=== PATIENT | female | born 1955 | race Caucasian/White ===

== ENCOUNTER → 2020-05-17 08:47 | Outpatient (BNVA) | payer OTHER, SELFPAY | PROVIDERS: PCP Internal Medicine; Referring Provider Internal Medicine; Visit Provider Internal Medicine Pulmonary Disease | DX: J44.9 Chronic obstructive pulmonary disease, unspecified (principal); J44.1 Chronic obstructive pulmonary disease with (acute) exacerbation; G47.33 Obstructive sleep apnea (adult) (pediatric); Z99.89 Dependence on other enabling machines and devices | CPT/HCPCS: 99212 ==

== ENCOUNTER → 2020-11-22 08:44 | Outpatient (BNVA) | payer OTHER, SELFPAY | PROVIDERS: PCP Internal Medicine; Visit Provider Internal Medicine Pulmonary Disease | DX: J44.9 Chronic obstructive pulmonary disease, unspecified (principal); G47.33 Obstructive sleep apnea (adult) (pediatric); Z99.89 Dependence on other enabling machines and devices | CPT/HCPCS: 99212 ==

== ENCOUNTER → 2021-05-29 08:39 | Outpatient (BNVA) | payer OTHER, SELFPAY | PROVIDERS: PCP Internal Medicine; Visit Provider Internal Medicine Pulmonary Disease | DX: J44.9 Chronic obstructive pulmonary disease, unspecified (principal); G47.33 Obstructive sleep apnea (adult) (pediatric); Z99.89 Dependence on other enabling machines and devices; Z99.81 Dependence on supplemental oxygen | CPT/HCPCS: 99212 ==

== ENCOUNTER → 2021-05-31 10:32 | Outpatient (BNVA) | payer OTHER, SELFPAY | PROVIDERS: PCP Internal Medicine; Visit Provider Internal Medicine Pulmonary Disease | DX: J44.9 Chronic obstructive pulmonary disease, unspecified (principal) | CPT/HCPCS: 99211 ==

== ENCOUNTER → 2021-08-01 10:36 | Outpatient (BNVA) | payer OTHER, SELFPAY | PROVIDERS: PCP Internal Medicine; Visit Provider Internal Medicine Pulmonary Disease | DX: J44.9 Chronic obstructive pulmonary disease, unspecified (principal); G47.33 Obstructive sleep apnea (adult) (pediatric); Z99.89 Dependence on other enabling machines and devices; Z99.81 Dependence on supplemental oxygen | CPT/HCPCS: 99212 ==

== ENCOUNTER → 2022-02-06 10:41 | Outpatient (BNVA) | payer OTHER, SELFPAY | PROVIDERS: PCP Internal Medicine; Visit Provider Internal Medicine Pulmonary Disease | DX: J44.9 Chronic obstructive pulmonary disease, unspecified (principal); G47.33 Obstructive sleep apnea (adult) (pediatric); Z99.89 Dependence on other enabling machines and devices; Z99.81 Dependence on supplemental oxygen | CPT/HCPCS: 99212 ==

== ENCOUNTER → 2022-08-23 10:44 | Outpatient (BNVA) | payer OTHER, SELFPAY | PROVIDERS: PCP Internal Medicine; Visit Provider Internal Medicine Pulmonary Disease | DX: J44.9 Chronic obstructive pulmonary disease, unspecified (principal); G47.33 Obstructive sleep apnea (adult) (pediatric); Z99.81 Dependence on supplemental oxygen; Z99.89 Dependence on other enabling machines and devices | CPT/HCPCS: 99212 ==

== ENCOUNTER 2023-02-27 11:20 | Outpatient (AMB) | payer OTHER, SELFPAY ==
--- NOTE | 2023-02-27 11:25 | A.OFFVIS_ITS ---
Intake Vital Signs 02/27/23 11:26 Height 5 ft 1 in Weight 220 lb 7.396 oz BMI 41.7 BP 124/69 Blood Pressure Location Rt brachial Position Sitting Pulse 76 Pulse Source Doppler Pulse Oximetry (%) 96 Oxygen Delivery Method Room Air Oxygen Flow Rate 2 Intake Visit Reasons: Dyspnea Allergies No Known Allergies Allergy (Verified 08/23/22 10:45) HPI Dyspnea HPI Details 67-year-old lady, former 20+ years smoke r, quit 2004, followed for underlying moderate to severe COPD and JF on CPAP. Patient is also followed by lung cancer screening program.? After the last office visit she has been switche d from Trelegy to BrezTri secondary to inability to tolerate powder inhalers, and now reports significantly improved symptom control. She has also been using Combivent, though intermittently. Patient continues to compliant with her CPAP with good control of her underlying JF symptoms. She denies recent exacerbations. Patient states that she had lung screening CT scan at [facility] several days prior to this evaluation, however the results are not available for this visit. [facility] Medical History (Updated 02/06/22 @ 11:29 by Olvin Rivera MD) COPD exacerbation Moderate COPD (chronic obstructive pulmonary disease) Social History (Updated 05/17/20 @ 08:59 by Sarah Ram MA) Years Smoked: 40 yrs Review of Systems Const Denies daytime sleepiness, Denies excessive sweating, Denies fatigue, Denies fever(s), Denies lethargy, Denies malaise, Denies night sweats, Denies snoring and Denies weight loss Eyes Denies blurry vision and Denies itchy eyes ENT Denies nasal congestion, Denies post nasal drip, Denies sinus pain, Denies sinus pressure and Denies other ( Thrush) Card Denies chest pain, Denies pedal edema, Denies dyspnea, Denies orthopnea and Denies paroxysmal nocturnal dyspnea Resp Denies cough, Denies hemoptysis, Denies excessive phlegm production, Denies dyspnea, Denies snoring and Denies wheezing GI Denies abdominal pain and Denies heartburn Musc Denies myalgias, Denies arthralgias and Denies joint swelling Skin/Breast Denies rash Neuro Denies memory loss and Denies seizure-like activity Psych Denies abnormal sleep pattern, Denies anxiety and Denies memory loss Endo Denies excessive sweating, Denies fatigue and Denies heat intolerance Phil/Lymph Denies easy bruising Aller/Immun Denies itchy eyes, Denies seasonal rhinorrhea and Denies wheezing Physical Exam Vital Signs: Last Vital Signs Pulse 76 02/27/23 11:26 BP 124/69 02/27/23 11:26 Pulse Ox 96 02/27/23 11:26 Oxygen Delivery Method Room Air 02/27/23 11:26 Oxygen Flow Rate 2 02/27/23 11:26 BMI result Body Mass Index 41.7 Const General: no acute distress and alert Nutritional Appearance: not obese Orientation/consciousness: Other orientation findings ( oriented) HEENT Head: Yes atraumatic Eyes General: appearance normal, both eyes and all related structures Sclerae: sclerae normal EOM: EOMs intact bilaterally Neck Neck: Yes supple Lymphatic: no lymphadenopathy noted Resp Effort & Inspection: normal respiratory effort and no use of accessory muscles Auscultation: clear to auscultation bilaterally Cardio Rate: regular rate Rhythm: regular rhythm Heart sounds: no gallops, no murmurs and no rubs Skin General skin exam: other ( warm) Extrem General: No clubbing, No cyanosis and No edema Assessment & Plan Assessment & Plan (1) Asthma-COPD overlap syndrome: Code(s): J44.9 - Chronic obstructive pulmonary disease, unspecified Plan: Well controlled on current regimen of BrezTri and Combivent. Continue current regimen. Will obtain full PFT. Will refer to Pulmonary Rehab. (2) Supplemental oxygen dependent: Code(s): Z99.81 - Dependence on supplemental oxygen Plan: Continue supplemental oxygen to maintain O2 saturation of 88-92%. (3) JF on CPAP: Code(s): G47.33 - Obstructive sleep apnea (adult) (pediatric); Z99.89 - Dependence on other enabling machines and devices Plan: Well controlled on current CPAP therapy. Continue CPAP therapy. Orders: Orders PFT pulmonary function test Today J44.9 - Chronic obstructive pulmonary disease , unspecified Pulmonary Rehab Today J44.9 - Chronic obstructive pulmonary disease, unspecified Medications: Refilled Breztri Aerosphere 160-9-4.8 mcg/actuation (nhfamyuskp-[id number]-tgdpfqyvqv) 2 inhalations inhalation BID 3 ea 3RF 90 days NS J44.9 - Chronic obstructive pulm onary disease, unspecified Coding Level of Care Code Est Pt Level 4 (00200) Diagnoses Asthma-COPD overlap syndrome J44.9 Supplemental oxygen dependent Z99.81 JF on CPAP G47.33; Z99.89
[2023-02-27 11:26] VITALS: BP 124/69; PULSE 76; O2SAT 96; BMI 41.7
== END 2023-02-27 11:48 | disposition home or self-care (01) ==
PROVIDERS: PCP Internal Medicine; Visit Provider Internal Medicine Pulmonary Disease
DX: J44.9 Chronic obstructive pulmonary disease, unspecified (principal); Z99.81 Dependence on supplemental oxygen; G47.33 Obstructive sleep apnea (adult) (pediatric); Z99.89 Dependence on other enabling machines and devices
CPT/HCPCS: 99214

== ENCOUNTER → 2023-02-27 11:20 | Outpatient (BNVA) | payer OTHER, SELFPAY | PROVIDERS: PCP Internal Medicine; Visit Provider Internal Medicine Pulmonary Disease | DX: J44.9 Chronic obstructive pulmonary disease, unspecified (principal); G47.33 Obstructive sleep apnea (adult) (pediatric); Z79.899 Other long term (current) drug therapy; Z99.81 Dependence on supplemental oxygen; Z99.89 Dependence on other enabling machines and devices | CPT/HCPCS: 99212 ==

== ENCOUNTER 2023-04-01 10:08 | Outpatient (REF) | payer OTHER, SELFPAY ==
--- NOTE | 2023-04-01 11:24 | PFT_ITS ---
FVC 112%, FEV1 89%, FEV1/FVC ratio is 62, which is decreased. [id number] 47%. MVV 92%. Post bronchodilator therapy, there is actually some decrease in most of the volumes. Lung volumes; total lung capacity 151%, residual volume 226%. Diffusion capacity is 44%. CONCLUSION: These findings are consistent with severe obstructive airway disorder. There is a negative response to bronchodilator therapy. Lung volumes indicate hyperinflation and air trapping. Clinical correlation is recommended. MD DAVID Golden/MODL / [id number]
== END 2023-04-01 10:09 | disposition home or self-care (01) ==
LOC: HO.RESP 10:08
PROVIDERS: PCP Internal Medicine; Visit Provider Internal Medicine Pulmonary Disease
DX: J44.9 Chronic obstructive pulmonary disease, unspecified (principal)
CPT/HCPCS: 94010; 94727; 94729

== ENCOUNTER → 2023-04-01 11:24 | Outpatient (BNV) | payer OTHER, SELFPAY | PROVIDERS: PCP Internal Medicine; Visit Provider Internal Medicine | DX: J44.9 Chronic obstructive pulmonary disease, unspecified (principal) | CPT/HCPCS: 94060; 94727; 94729 ==

== ENCOUNTER 2023-06-19 10:00 | Outpatient (RCR) | payer OTHER, SELFPAY | END 2023-07-02 09:29 | disposition home or self-care (01) | LOC: HO.PR 10:00 | PROVIDERS: PCP Internal Medicine; Visit Provider Internal Medicine Pulmonary Disease | DX: J44.9 Chronic obstructive pulmonary disease, unspecified (principal) | CPT/HCPCS: 94625; 94761; 99215 ==

== ENCOUNTER 2023-09-26 11:01 | Outpatient (AMB) | payer OTHER, SELFPAY ==
[2023-09-26 11:14] VITALS: BP 104/60; PULSE 68; O2SAT 91; BMI 40.6
--- NOTE | 2023-09-26 11:14 | MHC.OFFVIS ---
Intake Vital Signs 09/26/23 11:14 Height 5 ft 1 in Weight 214 lb 15.211 oz BMI 40.6 BP 104/60 Blood Pressure Location Rt brachial Position Sitting Pulse 68 Pulse Source Doppler Pulse Oximetry (%) 91 L Oxygen Delivery Method Room Air Intake Visit Reasons: Dyspnea Allergies No Known Allergies Allergy (Verified 08/23/22 10:45) HPI Dyspnea HPI Details 67-year-old lady, former 20+ years smoker, quit 2004, followed for underlying moderate to severe COPD and JF on CPAP. Patient is also followed by lung cancer screening program.? She continues on BrezTri secondary to inability to tolerate powder inhalers, and now reports significantly improved symptom control. She has also been using Combivent. Patient continues to be compliant with her CPAP with good control of her underlying JF symptoms. She denies recent exacerbations. [facility] Medical History (Updated 02/06/22 @ 11:29 by Olvin Rivera MD) COPD exacerbation Moderate COPD (chronic obstructive pulmonary disease) Social History (Updated 05/17/20 @ 08:59 by Sarah Ram MA) Years Smoked: 40 yrs Review of Systems Const Denies daytime sleepiness, Denies excessive sweating, Denies fatigue, Denies fever(s), Denies lethargy, Denies malaise, Denies night sweats, Denies snoring and Denies weight loss Eyes Denies blurry vision and Denies itchy eyes ENT Denies nasal congestion, Denies post nasal drip, Denies sinus pain, Denies sinus pressure and Denies other ( Thrush) Card Denies chest pain, Denies pedal edema, Denies dyspnea, Denies orthopnea and Denies paroxysmal nocturnal dyspnea Resp Denies cough, Denies hemoptysis, Denies excessive phlegm production, Denies dyspnea, Denies snoring and Denies wheezing GI Denies abdominal pain and Denies heartburn Musc Denies myalgias, Denies arthralgias and Denies joint swelling Skin/Breast Denies rash Neuro Denies memory loss and Denies seizure-like activity Psych Denies abnormal sleep pattern, Denies anxiety and Denies memory loss Endo Denies excessive sweating, Denies fatigue and Denies heat intolerance Phil/Lymph Denies easy bruising Aller/Immun Denies itchy eyes, Denies seasonal rhinorrhea and Denies wheezing Physical Exam Vital Signs: Last Vital Signs Pulse 68 09/26/23 11:14 BP 104/60 09/26/23 11:14 Pulse Ox 91 L 09/26/23 11:14 Oxygen Delivery Method Room Air 09/26/23 11:14 BMI result Body Mass Index 40.6 Const General: no acute distress and alert Nutritional Appearance: obese Orientation/consciousness: Other orientation findings ( oriented) HEENT Head: Yes atraumatic Eyes General: appearance normal, both eyes and all related structures Sclerae: sclerae normal EOM: EOMs intact bilaterally Neck Neck: Yes supple Lymphatic: no lymphadenopathy noted Resp Effort & Inspection: normal respiratory effort and no use of accessory muscles Auscultation: clear to auscultation bilaterally Cardio Rate: regular rate Rhythm: regular rhythm Heart sounds: no gallops, no murmurs and no rubs Skin General skin exam: other ( warm) Extrem General: No clubbing, No cyanosis and No edema Assessment & Plan Assessment & Plan (1) Asthma-COPD overlap syndrome: Code(s): J44.9 - Chronic obstructive pulmonary disease, unspecified Plan: Well controlled on current regimen of Breztri and Combivent. Continue current regimen. (2) Supplemental oxygen dependent: Code(s): Z99.81 - Dependence on supplemental oxygen Plan: Continue supplemental oxygen to maintain O2 saturation of 88-90%. (3) JF on CPAP: Code(s): G47.33 - Obstructive sleep apnea (adult) (pediatric); Z99.89 - Dependence on other enabling machines and devices Plan: Well controlled on current CPAP therapy. Continue CPAP therapy. Medications: Refilled Combivent Respimat 20-100 mcg/actuation (ipratropium-albuterol) 1 puff PO QID 3 ea 4RF 90 days NS Coding Level of Care Code Est Pt Level 4 (28168) Diagnoses Asthma-COPD overlap syndrome J44.9 Supplemental oxygen dependent Z99.81 JF on CPAP G47.33; Z99.89
== END 2023-09-26 11:28 | disposition home or self-care (01) ==
PROVIDERS: PCP Internal Medicine; Visit Provider Internal Medicine Pulmonary Disease
DX: J44.9 Chronic obstructive pulmonary disease, unspecified (principal); Z99.81 Dependence on supplemental oxygen; G47.33 Obstructive sleep apnea (adult) (pediatric); Z99.89 Dependence on other enabling machines and devices
CPT/HCPCS: 99214

== ENCOUNTER → 2023-09-26 11:01 | Outpatient (BNVA) | payer OTHER, SELFPAY | PROVIDERS: PCP Internal Medicine; Visit Provider Internal Medicine Pulmonary Disease | DX: J44.9 Chronic obstructive pulmonary disease, unspecified (principal); G47.33 Obstructive sleep apnea (adult) (pediatric); Z99.81 Dependence on supplemental oxygen; Z99.89 Dependence on other enabling machines and devices | CPT/HCPCS: 99212 ==

== ENCOUNTER 2024-03-31 10:08 | Outpatient (AMB) | payer OTHER, SELFPAY ==
[2024-03-31 10:13] VITALS: BP 119/66; PULSE 82; O2SAT 93; BMI 40.2
--- NOTE | 2024-03-31 10:13 | MHC.OFFVIS ---
Vital Signs 03/31/24 10:13 Height 5 ft 1 in Weight 213 lb BMI 40.2 BP 119/66 Blood Pressure Location Rt brachial Position Sitting Pulse 82 Pulse Source Doppler Pulse Oximetry (%) 93 Oxygen Delivery Method Nasal Cannula Oxygen Flow Rate 2 Intake Visit Reasons: Dyspnea Allergies No Known Allergies Allergy (Verified 08/23/22 10:45) HPI HPI Dyspnea: Details: 67-year-old lady, former 20+ years smoker, quit 2004, followed for underlying moderate to severe COPD and JF on CPAP. Patient has completed lung cancer screening program.? She continues on BrezTri secondary to inability to tolerate powder inhalers, and now reports significantly improved symptom control. She has also been using Combivent. Patient continues to be compliant with her CPAP with good control of her underlying JF symptoms. She does complain of mild bronchitic exacerbation symptomatic with cough productive of whitish sputum, but no wheezing. [facility] Medical History (Updated 02/06/22 @ 11:29 by Olvin Rivera MD) COPD exacerbation Moderate COPD (chronic obstructive pulmonary disease) Social History (Updated 05/17/20 @ 08:59 by Sarah Ram MA) Years Smoked: 40 yrs Review of Systems Const Denies daytime sleepiness, Denies excessive sweating, Denies fatigue, Denies fever(s), Denies lethargy, Denies malaise, Denies night sweats, Denies snoring and Denies weight loss Eyes Denies blurry vision and Denies itchy eyes ENT Denies nasal congestion, Denies post nasal drip, Denies sinus pain, Denies sinus pressure and Denies other ( Thrush) Card Denies chest pain, Denies pedal edema, Denies dyspnea, Denies orthopnea and Denies paroxysmal nocturnal dyspnea Resp Reports cough, Denies hemoptysis, Reports excessive phlegm production, Denies dyspnea, Denies snoring and Denies wheezing GI Denies abdominal pain and Denies heartburn Musc Denies myalgias, Denies arthralgias and Denies joint swelling Skin/Breast Denies rash Neuro Denies memory loss and Denies seizure-like activity Psych Denies abnormal sleep pattern, Denies anxiety and Denies memory loss Endo Denies excessive sweating, Denies fatigue and Denies heat intolerance Phil/Lymph Denies easy bruising Aller/Immun Denies itchy eyes, Denies seasonal rhinorrhea and Denies wheezing Physical Exam Vital Signs: Last Vital Signs Pulse 82 03/31/24 10:13 BP 119/66 03/31/24 10:13 Pulse Ox 93 03/31/24 10:13 Oxygen Delivery Method Nasal Cannula 03/31/24 10:13 Oxygen Flow Rate 2 03/31/24 10:13 BMI result Body Mass Index 40.2 Const General: no acute distress and alert Nutritional Appearance: obese Orientation/consciousness: Other orientation findings ( oriented) HEENT Head: Yes atraumatic Eyes General: appearance normal, both eyes and all related structures Sclerae: sclerae normal EOM: EOMs intact bilaterally Neck Neck: Yes supple Lymphatic: no lymphadenopathy noted Resp Effort & Inspection: normal respiratory effort and no use of accessory muscles Auscultation: clear to auscultation bilaterally Cardio Rate: regular rate Rhythm: regular rhythm Heart sounds: no gallops, no murmurs and no rubs Skin General skin exam: other ( warm) Extrem General: No clubbing, No cyanosis and No edema Assessment & Plan Assessment & Plan (1) Asthma-COPD overlap syndrome: Code(s): J44.9 - Chronic obstructive pulmonary disease, unspecified Category: Medical Plan: Well controlled on current regimen of BrezTri and Combiven. Continue current regimen. Will treat bronchitic exacerbation with a course of azithromycin. (2) Supplemental oxygen dependent: Code(s): Z99.81 - Dependence on supplemental oxygen Category: Medical Plan: Continue supplemental oxygen to maintain O2 saturation of 88-92%. (3) FJ on CPAP: Code(s): G47.33 - Obstructive sleep apnea (adult) (pediatric); Z99.89 - Dependence on other enabling machines and devices Category: Medical Plan: Well controlled on CPAP therapy. Continue CPAP therapy. Medications: New azithromycin For 250 mg dose pack: take 500 mg today (day 1), then 250 mg for 4 days (days 2-5) PO 6 tabs 0RF Coding Level of Care Code Est Pt Level 4 (56059) Complex EM visit Add On G2211 Diagnoses Asthma-COPD overlap syndrome J44.9 Supplemental oxygen dependent Z99.81 JF on CPAP G47.33; Z99.89
== END 2024-03-31 10:34 | disposition home or self-care (01) ==
PROVIDERS: PCP Internal Medicine; Visit Provider Internal Medicine Pulmonary Disease
DX: J44.9 Chronic obstructive pulmonary disease, unspecified (principal); Z99.81 Dependence on supplemental oxygen; G47.33 Obstructive sleep apnea (adult) (pediatric); Z99.89 Dependence on other enabling machines and devices
CPT/HCPCS: 99214

== ENCOUNTER → 2024-03-31 10:08 | Outpatient (BNVA) | payer OTHER, SELFPAY | PROVIDERS: PCP Internal Medicine; Visit Provider Internal Medicine Pulmonary Disease | DX: J44.9 Chronic obstructive pulmonary disease, unspecified (principal); G47.33 Obstructive sleep apnea (adult) (pediatric); Z99.81 Dependence on supplemental oxygen; Z99.89 Dependence on other enabling machines and devices | CPT/HCPCS: 99212 ==

== ENCOUNTER 2024-09-14 10:11 | Outpatient (AMB) | payer OTHER, SELFPAY ==
[2024-09-14 10:27] VITALS: BP 100/60; PULSE 81; O2SAT 93; BMI 41.0
--- NOTE | 2024-09-14 10:27 | MHC.OFFVIS ---
Vital Signs 09/14/24 10:27 Height 5 ft 1 in Weight 217 lb BMI 41.0 BP 100/60 Blood Pressure Location Lt brachial Position Sitting Pulse 81 Pulse Source Doppler Pulse Oximetry (%) 93 Oxygen Delivery Method Nasal Cannula Oxygen Flow Rate 1 Intake Visit Reasons: dyspnea Allergies No Known Allergies Allergy (Verified 08/23/22 10:45) HPI HPI dyspnea: Details: 68-year-old lady, former 20+ years smoker, quit 2004, followed for underlying moderate to severe COPD and JF on CPAP. Patient has completed lung cancer screening program.? She continues on BrezTri secondary to inability to tolerate powder inhalers, and her symptoms are well controlled. She has also been using Combivent. Patient continues to be compliant with her CPAP with good control of her underlying JF symptoms. She denies recent exacerbations. [facility] Medical History (Updated 02/06/22 @ 11:29 by Olvin Rivera MD) COPD exacerbation Moderate COPD (chronic obstructive pulmonary disease) Social History (Updated 05/17/20 @ 08:59 by Sarah Ram MA) Years Smoked: 40 yrs Review of Systems Const Denies daytime sleepiness, Denies excessive sweating, Denies fatigue, Denies fever(s), Denies lethargy, Denies malaise, Denies night sweats, Denies snoring and Denies weight loss Eyes Denies blurry vision and Denies itchy eyes ENT Denies nasal congestion, Denies post nasal drip, Denies sinus pain, Denies sinus pressure and Denies other ( Thrush) Card Denies chest pain, Denies pedal edema, Denies dyspnea, Denies orthopnea and Denies paroxysmal nocturnal dyspnea Resp Denies cough, Denies hemoptysis, Denies excessive phlegm production, Denies dyspnea, Denies snoring and Denies wheezing GI Denies abdominal pain and Denies heartburn Musc Denies myalgias, Denies arthralgias and Denies joint swelling Skin/Breast Denies rash Neuro Denies memory loss and Denies seizure-like activity Psych Denies abnormal sleep pattern, Denies anxiety and Denies memory loss Endo Denies excessive sweating, Denies fatigue and Denies heat intolerance Phil/Lymph Denies easy bruising Aller/Immun Denies itchy eyes, Denies seasonal rhinorrhea and Denies wheezing Physical Exam Vital Signs: Last Vital Signs Pulse 81 09/14/24 10:27 BP 100/60 09/14/24 10:27 Pulse Ox 93 09/14/24 10:27 Oxygen Delivery Method Nasal Cannula 09/14/24 10:27 Oxygen Flow Rate 1 09/14/24 10:27 BMI result Body Mass Index 41.0 Const General: no acute distress and alert Nutritional Appearance: obese Orientation/consciousness: Other orientation findings ( oriented) HEENT Head: Yes atraumatic Eyes General: appearance normal, both eyes and all related structures Sclerae: sclerae normal EOM: EOMs intact bilaterally Neck Neck: Yes supple Lymphatic: no lymphadenopathy noted Resp Effort & Inspection: normal respiratory effort and no use of accessory muscles Auscultation: clear to auscultation bilaterally Cardio Rate: regular rate Rhythm: regular rhythm Heart sounds: no gallops, no murmurs and no rubs Skin General skin exam: other ( warm) Extrem General: No clubbing, No cyanosis and No edema Assessment & Plan Assessment & Plan (1) Asthma-COPD overlap syndrome: Code(s): J44.9 - Chronic obstructive pulmonary disease, unspecified Category: Medical Plan: Well controlled on current regimen of Breztri and Combivent. Continue current regimen. (2) Supplemental oxygen dependent: Code(s): Z99.81 - Dependence on supplemental oxygen Category: Medical Plan: Continue supplemental oxygen to maintain O2 saturation of 89-93%. (3) JF on CPAP: Code(s): G47.33 - Obstructive sleep apnea (adult) (pediatric); Z99.89 - Dependence on other enabling machines and devices Category: Medical Plan: Therapy and compliance report reviewed - patient is benefitting from and is compliant with noninvasive positive pressure ventilation treatment, using it greater than 70% of the time, more than 4 hours per night. Continue current CPAP therapy. Coding Level of Care Code Est Pt Level 4 (12134) Complex EM visit Add On G2211 Diagnoses Asthma-COPD overlap syndrome J44.9 Supplemental oxygen dependent Z99.81 JF on CPAP G47.33; Z99.89
--- OUTSIDE RECORDS SUMMARY | 2024-09-14 11:54 | XMS_ITS | Clinical Summary ---
Author Organization [address] Address [address] [place] [phone] Phone Care Team Providers Care Blood And Plasma Laboratory Assistant Name Role Phone Lisa Fitzpatrick MD Primary Care Provider [phone] Allergies No known active allergies Medications ascorbate calcium/bioflavon oid (REINA-C WITH BIOFLAVONOIDS ORAL) Take 1,000 mg by mouth daily. Active budesonide-glycop yr-formoterol (Breztri Aerosphere) 160-9-4.8 mcg/actuation HFA aerosol inhaler inhaler Inhale 2 Puffs into the lungs 2 times daily. Pulmo Active calcium carbonate/vitamin D3 (CALCIUM + D ORAL) Take 1 Tab by mouth daily. Active ascorbic acid/collagen hydr (COLLAGEN SKIN RENEWAL ORAL) COLLAGEN OR Take 1 Each by mouth daily. Active ipratropium-albut Karin (Combivent Respimat) 20-100 mcg/actuation inhaler INHALE 1 PUFF BY MOUTH FOUR TIMES A DAY 9 Active UNABLE TO FIND CPAP HISTORICAL (HISTORICAL CPAP) 12 cm by Nasal route at bedtime. Regional-press ure 6-16 Active desoximetasone (TOPICORT) 0.25 % cream 2 Active latanoprost (XALATAN) 0.005 % ophthalmic solution 9 Active Oxygen Therapy (O2) gas Inhale into the lungs. Active eye vitamin supplement (OCUVITE EYE HEALTH FORMULA) capsule capsule Take 1 tablet by mouth daily. Active pantoprazole (PROTONIX) 40 mg EC tablet Take 1 tablet (40 mg total) by mouth 1 (one) time each day. Do not crush, chew, or split. 90 each 1 4 Active Synthroid 175 mcg tabletIndications :Hypothyroidism following radioiodine therapy Take 1 tablet (175 mcg total) by mouth 1 (one) time each day before breakfast. 90 tablet 1 4 Active buPROPion SR (WELLBUTRIN SR) 150 mg 12 hr tablet Take 1 tablet (150 mg total) by mouth 2 (two) times a day. Do not crush, chew, or split. 180 tablet 1 5 Active predniSONE (DELTASONE) 20 mg tablet Take 60 mg PO daily for 3 days, then take 40 mg PO daily for 3 days, then 20 mg PO daily for 3 days, then stop 18 tablet 5 Active Active Problems Problem Noted Date Diagnosed Date GERD (gastroesophageal reflux disease) 4 Overview (04/27/2024): Upper GI endoscopy 03/03/2009, 7-cm hiatal hernia. No other lesions. Assessment & Plan (05/31/2024 12:20 PM EST): Anxiety 11/03/2023 CKD (chronic kidney disease) stage 3, GFR 30-59 ml/min 04/29/2022 Assessment & Plan (05/31/2024 12:20 PM EST): Class 2 obesity 01/23/2018 Pulmonary nodules 01/01/2018 Actinic keratoses 04/30/2017 Overview (04/27/2024): Actinic keratoses 05/02 face JF and COPD overlap syndrome 04/03/2017 Stage 2 moderate COPD by GOLD classification Assessment & Plan (05/31/2024 12:20 PM EST): PLMD (periodic limb movement disorder) 0 Fatty liver 09/18/2009 Overview (04/27/2024): Incidental finding on chest CT scan 09/11/2009. Graves' disease 02/22/2009 Overview (05/28/2024): History of radioactive iodine treatment for this. Hiatal hernia 02/22/2009 Overview (04/27/2024): Upper GI endoscopy 03/03/2009, 7-cm hiatal hernia. Osteoarthrosis, localized, primary, involving lo wer leg 06/03/2006 Overview (04/27/2024): Left: mild xray and mri findings IMO Update Fall 2015 Depressive disorder 11/12/2005 Hypothyroidism following radioiodine therapy Overview (04/27/2024): RA iodine for graves Assessment & Plan (05/31/2024 12:20 PM EST): Orders: Synthroid 175 mcg tablet; Take 1 tablet (175 mcg total) by mouth 1 (one) time each day before breakfast. Urinary incontinence 11/12/2005 Assessment & Plan (05/31/2024 12:20 PM EST): Encounters Date Type Department Care Team Description 09/03/2024 10:31 AM EDT - 09/03/2024 11:59 PM EDT Hospital Encounter Radiology Department - [address] [phone] Encounter for screening mammogram for breast cancer Discharge Disposition: Home or Self Care 07/30/2024 12:30 PM EST Consult Orthopedics - [address] [phone] Rafiq Brunson PA Mucous cyst of digit of right hand (Primary Dx); Nodule of finger of right hand 07/30/2024 11:30 AM EST - 07/30/2024 11:59 PM EST Hospital Encounter XRAY - [address] [phone] Nodule of finger of right hand Discharge Disposition: Home or Self Care 07/28/2024 10:30 AM EST Office Visit Adult [facility] - [address] [phone] Shalonda Gupta PA COPD exacerbation (CMS/HCC) (Primary Dx) 07/27/2024 Telephone Adult Medicine [address] [phone] Lisa Fitzpatrick MD Cough from Last 3 Months Immunizations Name Administration Dates Next Due Influenza Quadravalent, 0.5m l (Fluad) 65yo and older 02/19/2023,03/15/2022,03/26/2021,02/22 Influenza Quadravalent, MDCK , 0.5ml, preservative free (Flucelvax) 6mo and older 04/17/2018 Influenza Quadravalent, MDCK , 0.5ml, with preservative (Flucelvax) 6mo and older 03/03/2017 Influenza Quadrivalent, 0.5m l, preservative free (Fluarix; FluLaval; Fluzone) ages 6mo and older (Afluria) 3yo and older 03/27/2019 Influenza trivalent, 0.5mL ( Fluad) 65yo and older 02/26/2024,03/16/2022,03/26/2021,02/22 Influenza trivalent, 0.5mL, preservative free (Fluarix; FluLaval; Fluzone) ages 6mo and older (Afluria) 3 years and older 03/27/2019,02/27/2016,03/13/2015,03/30,03/04/2013,04/22/2012,04/16/2010 Influenza trivalent, with pr eservative (Fluzone; Afluria) 6mo and older 02/27/2016,03/13/2015,03/30/2014,03/04,04/22/2012,02/21/2011,04/16/2010 Influenza, Unspecified 04/04/2023 Moderna SARS-CoV-2 COVID-19, mRNA, LNP-S, preservative free 10/03/2021 Pfizer (ages 12 & older) Biv alent, COVID-19 03/17/2022 Pfizer SARS-CoV-2 COVID-19, mRNA, LNP-S, preservative free 10/07/2020,09/16/2020 Pneumococcal conjugate 13 va lent (Prevnar 13, PCV13) 2mo and older 01/24/2020 Pneumococcal polysaccharide 23 valent (Pneumovax 23) 2yo and older 04/17/2018,04/16/2010 RSV, bivalent, protein subun it RSVpreF, 0.5mL, Preservative Free (ABRYSVO) 60yo and older or 32 through 36 wks of 03/07/2023 RSV, bivalent, protein subun it RSVpreF, 0.5mL, Preservative Free (Arexvy) 60yo and older 04/04/2023 Tdap Tetanus diptheria acell ular pertussis (Boostrix; Adacel) 7yo and older 07/26/2019,06/24/2007 Zoster Live 12/25/2015 Zoster recombinant (Shingrix ) 19yo and older 07/27/2021,03/30/2021 Surgical History Surgery Date Site/Laterality Comments HYSTERECTOMY 1983 OTHER SURGICAL HISTORY Graves disease X 3 TONSILLECTOMY 1957 OTHER SURGICAL HISTORY 03/09 L BREAST CYST ESOPHAGOGASTRODUODENOSCOPY 03/03/2009 : 7 cm hiatal hernia. CHOLECYSTECTOMY 03/14/2009 EYE SURGERY 10/28 , Garth portillo for pressurein eyes BREAST BIOPSY Right cyst asp-many yrs ago CYSTOCELE REPAIR Medical History Medical History Date Comments Irritable bowel syndrome Osteoarthrosis, unspecified whether generalized or localized, lower leg 06/03/2006 DX:Osteoarthrosis, unspecified whether generalized or localized, lower leg; COMMENT: Left: mild xray and mri findings GERD (gastroesophageal reflux disease) Fatty liver 09/18/2009 DX:Fatty liver Actinic keratoses 04/30/2017 CKD (chronic kidney disease) stage 3, GFR 30-59 ml/min ([facility]) 04/29/2022 Anxiety 11/03/2023 Depressive disorder 11/12/2005 Graves' disease 02/22/2009 History of radio active iodine treatment for this. ?? Hypothyroidism following rad ioiodine therapy 11/12/2005 RA iodine for graves JF and COPD overlap syndrome ([facility]) 04/03/20 17 PLMD (periodic limb movement disorder) 0 Stage 2 moderate COPD by GOL D classification ([facility]) 04/03/2017 Urinary incontinence 11/12/2005 Family History Medical History Relation Name Comments Heart attack Brother lung cancer Seizures Father Other: lupus Mother lung cancer Other: lupus Sister 1 Lung cancer Sister 2 Asthma Son xander Breast cancer Neg Hx Colon cancer Neg Hx Ovarian cancer Neg Hx Uterine cancer Neg Hx Relation Name Status Comments Brother Alive Father (Age 50) Maternal Grandfather Maternal Grandmother Mother Paternal Grandfather Paternal Grandmother CHILDBI RTH Sister 1 Alive Sister 2 Alive Son Social History Tobacco Use Types Packs/Day Years Used Date Smoking Tobacco: Former Cigarettes 1 39.1 0 06/16/1968 - 07/31/2007 Smokeless Tobacco: Never Tobacco Cessation:Counseling Given: Not Answered Alcohol Use Standard Drinks/Week Comments No 0 (1 standard drink = 0.6 oz pur e alcohol) Comments No Sex and Gender Information Value Date Recorded Sex Assigned at Not on file Legal Sex Female 6:57 PM EST Gender Identity Not on file Sexual Orientation Not on file Obstetrics History Para Term AB IAB SAB Ectopic Multiple Livin g Live Births 3 3 3 3 Date Outcome GA Total Labor Labor/2nd/3rd Weight Sex Type Anes PTL Chantal A1 A5 Name Clin Term Term Term Last Filed Vital Signs Vital Sign Reading Time Taken Comments Blood Pressure 118/62 07/28/2024 10:46 AM EST Pulse 75 07/28/2024 10:46 AM EST Temperature 36 ??C (96.8 ??F) 07/28/2024 10:46 AM EST Respiratory Rate 16 07/30/2024 12:28 PM EST Oxygen Saturation 95% 07/28/2024 10:46 AM EST 2L o2 Inhaled Oxygen Concentration - - Weight 99.3 kg (219 lb) 07/30/2024 12:28 PM EST Height 156.2 cm (5' 1.5 ) 07/30/2024 12:28 PM ES T Body Mass Index 40.71 07/30/2024 12:28 PM EST Plan of Treatment Upcoming Encounters Date Type Department Care Team (Late st Contact Info) Description 09/14/2024 2:00 PM EDT Consult Orthopedic Surgery - [place] [address] [facility] [address] [place] [phone] Kena Busby MD [address] [facility] [address] [place] [phone] 01/13/2025 11:30 AM EDT Office Visit Adult Medicine [facility] [address] [place] [phone] Ana Cristina Shah PA [address] [place] [address] Health Maintenance Due Date Last Done Comments Colorectal Cancer Screening: Stool Based Tests (FOBT/FIT) 05/25/2022 Social Influencers of Health Screening 05/25/2022 Depression Screening 05/31/2025 05/31/2024 Falls Risk Assessment 05/31/2025 05/31/2024 Breast Cancer Screening 09/03/2026 09/04/19, 08/26/2023, 08/19/2022, Additional history exists Cholesterol Screening (Lipid Panel) 10/20/2028 10/21/2023, 10/21/2023 DTaP,Tdap,and Td Vaccines (3 - Td or Tdap) 07/26/2029 07/26/2019, 06/24/2007 Osteoporosis Screening (Bone Density Screening) 02/10/2030 02/11/2020 Hepatitis C Screening Completed 06/05/2015 Zoster Vaccines Completed 07/27/2021, 03/16, 12/25/2015 RSV Immunization Patients 60+ Years Old Completed 04/04/2023, 03/07/2023 Colorectal Cancer Screening: FIT-DNA (Cologuard) Discontinued 11/13/2023, 11/13/2023 Influenza Vaccine Completed 02/26/2024, , 02/19/2023, Additional history exists COVID-19 Vaccine Completed 09/02/2024, 05/2024, 03/14/2023, Additional history exists Pneumococcal Vaccine: 50+ Years Completed 09/02/2024, 01/24/2020, 04/17/2018, Additional history exists HIB Vaccines Aged Out No longer eligi ble based on patient's age to complete this topic HPV Vaccines Aged Out No longer eligi ble based on patient's age to complete this topic Hepatitis A Vaccines Aged Out No long er eligible based on patient's age to complete this topic Hepatitis B Vaccines Aged Out No long er eligible based on patient's age to complete this topic IPV Vaccines Aged Out No longer eligi ble based on patient's age to complete this topic MMR Vaccines Aged Out No longer eligi ble based on patient's age to complete this topic Meningococcal ACWY Vaccine Aged Out N o longer eligible based on patient's age to complete this topic Meningococcal B Vacine Aged Out No lo nger eligible based on patient's age to complete this topic RSV Immunization Patients Under 20 months Aged Out No longer eligible based on patient's age to complete this topic Varicella Vaccines Aged Out No longer eligible based on patient's age to complete this topic Procedures Procedure Name Priority Date/Time Associated Diagnosis Comments MG MAMMO DIGITAL SCREENING W RAFFI BILAT Routine 09/03/2024 10:52 AM EDT Encounter for screening mammogram for breast cancer XR HAND 3+ VIEWS RIGHT Routine 07/30/2024 11:42 AM EST Nodule of finger of right hand FIT-DNA Routine 11/13/2023 LIPID PANEL Routine 10/21/2023 DXA BONE DENSITY STUDY 1+ SITS AXIAL SKEL Routine 02/11/2020 10:59 AM EDT Other specified personal risk factors, not elsewhere classified HEPATITIS C SCREENING Routine 06/05/2015 from Last 3 Months or Most Recently Relevant to Health Maintenance Results * MG Mammo Digital Screening w Raffi bilat (09/03/2024 10:52 AM EDT) Anatomical Region Laterality Modality Breast Bilateral Mammography 09/03/2024 4:24 PM EDT Impressions 09/03/2024 4:28 PM EDT No mammographic evidence for malignancy. BI-RADS CATEGORY: 1 - NEGATIVE RECOMMENDATION: Screening bilateral mammogram is recommended in 1 year. Mammo Location: [facility], [address] [place] [address], [id number], . -------- FINAL REPORT -------- Dictated By: Whitney Huerta Dictated Date: 09/03/2024 16:24 ET Assigned Physician: Whitney Huerta Reviewed and Electronically Signed By: Whitney Huerta Signed Date: 09/03/2024 16:28 ET Workstation ID: [id number] Transcribed By: Self Edit Transcribed Date: 09/03/2024 16:24 ET Narrative 09/03/2024 4:28 PM EDT CLINICAL: 68 years old, Female, routine annual exam. COMPARISON: Prior mammograms, latest from 08/26/2023. ?? TECHNIQUE: Bilateral MLO and CC views were obtained digitally with 2-D C views and 3-D mammogram (digital breast tomosynthesis). Computer-aided detection was utilized in evaluation of this exam (CAD). FINDINGS: There is no evidence of suspicious mass or architectural distortion. ??No worrisome calcifications are evident. ??There has been no significant change from prior exam(s). ?? BREAST DENSITY: B - There are scattered areas of fibroglandular density. Procedure Note Whitney Huerta MD - 09/03/2024 CLINICAL: 68 years old, Female, routine annual exam. COMPARISON: Prior mammograms, latest from 08/26/2023. TECHNIQUE: Bilateral MLO and CC views were obtained digitally with 2-D Cviews and 3-D mammogram (digital breast tomosynthesis). Computer-aideddetection was utilized in evaluation of this exam (CAD). FINDINGS: There is no evidence of suspicious mass or architectural distortion. Noworrisome calcifications are evident. There has been no significantchange from prior exam(s). BREAST DENSITY: B - There are scattered areas of fibroglandular density. IMPRESSION: No mammographic evidence for malignancy. BI-RADS CATEGORY: 1 - NEGATIVE RECOMMENDATION: Screening bilateral mammogram is recommended in 1 year. Mammo Location: [facility], [address] [place] [address], [id number], . -------- FINAL REPORT -------- Dictated By: Whitney Huerta Dictated Date: 09/03/2024 16:24 ET Assigned Physician: Whitney Huerta Reviewed and Electronically Signed By: Whitney Huerta Signed Date: 09/03/2024 16:28 ET Workstation ID: [id number] Transcribed By: Self Edit Transcribed Date: 09/03/2024 16:24 ET Lisa Fitzpatrick MD IMG BI PROCEDURES Final Result * XR Hand 3+ Views Right (07/30/2024 11:42 AM EST) Anatomical Region Laterality Modality Upper Extremities, Hand Right Radiogra phic Imaging 07/30/2024 3:41 PM EST Impressions 07/30/2024 3:44 PM EST Osteoarthritic changes as described above. -------- FINAL REPORT -------- Dictated By: Salinas Hernandes Dictated Date: 07/30/2024 15:41 ET Assigned Physician: Salinas Hernandes Reviewed and Electronically Signed By: Salinas Hernandes Signed Date: 07/30/2024 15:44 ET Workstation ID: [id number] Transcribed By: Self Edit Transcribed Date: 07/30/2024 15:41 ET Narrative 07/30/2024 3:44 PM EST HISTORY: finger pain Nodule 2nd Right finger TECHNIQUE: AP, lateral, and oblique radiographs of the right hand COMPARISON: None No acute fracture or dislocation is identified. ??There is moderate joint space narrowing at the 1st, 2nd and 3rd DIP joints and severe joint space narrowing at the 5th DIP joint with subchondral sclerosis and subchondral cystic changes. ??There is moderate joint space narrowing at the base the thumb with subchondral sclerosis and moderate-sized osteophytes. ??Moderate-sized osteophytes are also present at the 2nd and 5th DIP joints. Procedure Note Salinas Hernandes MD - 07/30/2024 HISTORY: finger pain Nodule 2nd Right finger TECHNIQUE: AP, lateral, and oblique radiographs of the right hand COMPARISON: None No acute fracture or dislocation is identified. There is moderate jointspace narrowing at the 1st, 2nd and 3rd DIP joints and severe joint spacenarrowing at the 5th DIP joint with subchondral sclerosis and subchondralcystic changes. There is moderate joint space narrowing at the base thethumb with subchondral sclerosis and moderate-sized osteophytes.Moderate-sized osteophytes are also present at the 2nd and 5th DIPjoints. IMPRESSION: Osteoarthritic changes as described above. -------- FINAL REPORT -------- Dictated By: Salinas Hernandes Dictated Date: 07/30/2024 15:41 ET Assigned Physician: Salinas Hernandes Reviewed and Electronically Signed By: Salinas Hernandes Signed Date: 07/30/2024 15:44 ET Workstation ID: [id number] Transcribed By: Self Edit Transcribed Date: 07/30/2024 15:41 ET Rafiq GUTHRIE IMG XR PROCEDURES Final Result * FIT-DNA (Cologuard) (11/13/2023) [facility] Colorectal Cancer Screening: FIT-DNA (Cologuard) Abstracted, no interpretation Historical Provider HEALTH MAINTENANCE Final Result * Lipid panel (10/21/2023) [facility] LDL/HDL Ratio 4 0 - 4 Triglycerides 127 0 - 150 mg/dL Cholesterol 173 0 - 200 mg/dL HDL 50 >=40 mg/dL LDL Cholesterol 98 0 - 100 mg/dL Blood Venous blood specimen / Unknown Historical Provider LAB BLOOD ORDERABLES Flavia l Result * DXA BONE DENSITY STUDY 1+ SITS AXIAL SKEL (02/11/2020 10:59 AM EDT) Anatomical Region Laterality Modality Bone Densitometr y 01/24/2020 8:51 AM EDT Narrative 02/14/2020 5:43 PM EDT BONE DENSITY ? Lumbar Spine T-score is +1.4 ?? (SD relative to 20-29 y/o adult) Z-score is +3.2 ??(SD relative to age matched peers) This is normal by criteria defined by the WHO. Left Hip T-score is -0.1 Z-score is +1.4 This is normal by criteria defined by the WHO. Comparison exam(s): significant increase in bone density of ??lumbar spine when compared to most recent bone density examination ?? Confidence level is +/-95%. Impression: Based on the World Health Organization criteria, Virginia Haque should be classified as having normal bone density. The [facility] Department of Internal Medicine recommends using National Osteoporosis Foundation (NOF) guidelines in treatment decisions related to osteoporosis. NOF guidelines suggest considering treatment for postmenopausal women and men aged 50 or older presenting with the following: History of hip or vertebral fracture. T-score less than or equal to -2.5 (DXA) at the femoral neck, total hip, or spine, after appropriate evaluation to exclude secondary causes. Low bone mass (T-score between -1.0 and -2.5 at the femoral neck or spine) AND a 10-year probability of a hip fracture greater than or equal to 3% OR a 10-year probability of a major osteoporosis-related fracture greater than or equal to 20% based on the [place]-adapted WHO algorithm Please note that all treatment decisions require clinical judgment and consideration of individual patient factors, including patient preferences, co-morbidities, previous drug use, risk factors not captured in the FRAX model (e.g., frailty, falls, vitamin D deficiency, increased bone turnover, interval significant decline in bone density) and possible under- or over-estimation of fracture risk by FRAX. Procedure Note Whitney Huerta MD - 06/04/2022 BONE DENSITY Lumbar Spine T-score is +1.4 (SD relative to 20-29 y/o adult) Z-score is +3.2 (SD relative to age matched peers) This is normal by criteria defined by the WHO. Left Hip T-score is -0.1 Z-score is +1.4 This is normal by criteria defined by the WHO. Comparison exam(s): significant increase in bone density of lumbar spinewhen compared to most recent bone density examination Confidence level is +/-95%. Impression: Based on the World Health Organization criteria, Virginia Haque should beclassified as having normal bone density. The [facility] Department of Internal Medicine recommendsusing National Osteoporosis Foundation (NOF) guidelines in treatmentdecisions related to osteoporosis. NOF guidelines suggest consideringtreatment for postmenopausal women and men aged 50 or older presentingwith the following: History of hip or vertebral fracture. T-score less than or equal to -2.5 (DXA) at the femoral neck, total hip,or spine, after appropriate evaluation to exclude secondary causes. Low bone mass (T-score between -1.0 and -2.5 at the femoral neck or spine)AND a 10-year probability of a hip fracture greater than or equal to 3% ORa 10-year probability of a major osteoporosis-related fracture greaterthan or equal to 20% based on the [place]-adapted WHO algorithm Please note that all treatment decisions require clinical judgment andconsideration of individual patient factors, including patientpreferences, co-morbidities, previous drug use, risk factors not capturedin the FRAX model (e.g., frailty, falls, vitamin D deficiency, increasedbone turnover, interval significant decline in bone density) and possibleunder- or over-estimation of fracture risk by FRAX. Jessica DICKEY DXA PROCEDURES Final Resu lt * Hepatitis C Screening (06/05/2015) [facility] Hepatitis C Screening Abstracted Historical Provider MD HEALTH MAINTENANCE Final Result from Last 3 Months or Most Recently Relevant to Health Maintenance Insurance [facility] Care Teams Blood And Plasma Laboratory Assistant Relationship Specialty Start Date End Date Lisa Fitzpatrick MD [address] [place] [id number] PCP - General Internal Medicine 08/21/20
== END 2024-09-14 10:44 | disposition home or self-care (01) ==
LOC: HO.HPS 10:12
PROVIDERS: PCP Internal Medicine; Visit Provider Internal Medicine Pulmonary Disease
DX: J44.9 Chronic obstructive pulmonary disease, unspecified (principal); Z99.81 Dependence on supplemental oxygen; G47.33 Obstructive sleep apnea (adult) (pediatric); Z99.89 Dependence on other enabling machines and devices
CPT/HCPCS: 99214

== ENCOUNTER → 2024-09-14 10:11 | Outpatient (BNVA) | payer OTHER, SELFPAY | PROVIDERS: PCP Internal Medicine; Visit Provider Internal Medicine Pulmonary Disease | DX: J44.9 Chronic obstructive pulmonary disease, unspecified (principal); G47.33 Obstructive sleep apnea (adult) (pediatric); Z99.89 Dependence on other enabling machines and devices; Z99.81 Dependence on supplemental oxygen | CPT/HCPCS: 99212 ==

== ENCOUNTER 2024-10-03 12:06 | Emergency (ER) | payer OTHER, SELFPAY ==
--- NOTE | ~2024-10-03 | XR_ITS ---
CLINICAL HISTORY: atraumatic midline low back pain Radiographs of the lumbar spine, 3 views Comparison: None Findings: Alignment is within normal limits. No fracture. The vertebral body heights are preserved. There is esek-fv-hipqhwej multilevel intervertebral disc space narrowing with crzw-po-hnubavgw endplate osteophytosis. Mild endplate sclerosis at L1/L2. Moderate lower lumbar facet hypertrophy. Vascular calcifications. Hernia mesh. Cholecystectomy clips. Impression: No acute findings. Moderate degenerative change. This document has been electronically signed by: Nadine Mcbride MD on 10/03/2024 14:55:41
--- NOTE | ~2024-10-03 | XR_ITS ---
CLINICAL HISTORY: COUGH SOB Chest Radiographs, 2 views Comparison: None Findings: No cardiomegaly. Normal mediastinal contours. No pneumothorax. Question interstitial prominence. Faint patchy opacity which is best seen in the left mid lung zone on the PA view. Blunting of costophrenic angle posteriorly may indicate trace pleural fluid. Hiatal hernia. Normal upper abdomen. No acute fracture. Impression: Suspect developing pneumonia if there are signs/symptoms of infection. Mild edema may also be considered. This document has been electronically signed by: Nadine Mcbride MD on 10/03/2024 14:07:03
[2024-10-03 12:11] VITALS: BP 149/83; PULSE 84; RESP 20; TEMP 36.9; O2SAT 92; BMI 41.2
--- NOTE | 2024-10-03 12:13 | ED.GENADULT ---
HPI - General Adult General Chief complaint: General Medical Stated complaint: insomnia, shaking Time Seen by Provider: 10/03/24 12:51 Source: patient Mode of arrival: ambulatory Limitations: no limitations History of Present Illness ED Provider: ANGELY GARRETT PA-C HPI narrative: 69-year-old female with pmhx significant for COPD on 1-3L O2 and JF on CPAP presents to the ED today for evaluation of insomnia x2 weeks. Reports difficulty falling asleep. Will wake up later in the night to use the restroom and will have trouble falling back to sleep. Reports 2-3 hours/sleep a night. Admits her sister 3 weeks ago. This was expected and did not come as a surprised to her. No other anticipating events. She has tried unisom (1 tab/night) without improvement. Reports 40 pack year history, quit over 15 years ago. Denies SI/HI. Denies AH/VH/TH. She also reports midline lower back pain that started this morning after waking. She is unsure if she slept wrong. No numbness/tingling/weakness of the lower extremities, saddle anesthesia, urinary symptoms, bowel or bladder incontinence or retention. No history of IV drug use. No history of spinal surgery. Also endorses left sided chest pain that started around 0400. This pain did not wake her from her sleep. Pain resolved after taking a baby aspirin. No pain at present. Denies headache, fever, chills, dizziness, vision changes, chest pain, shortness of breath, lower extremity pain/swelling. Related Data Home Medications ?Medication ?Instructions ?Recorded ?Confirmed fluoxetine 60 mg tablet 60 mg PO DAILY 05/17/20 05/31/21 latanoprost 0.005 % eye drops drp ophthalmic (eye) 05/17/20 05/31/21 levothyroxine 175 mcg tablet 175 mcg PO DAILY 05/17/20 05/31/21 oxybutynin chloride 15 mg 15 mg PO DAILY 05/17/20 05/31/21 tablet,extended release 24 hr pantoprazole 40 mg tablet,delayed 40 mg PO DAILY 05/17/20 05/31/21 release bupropion HCl 150 mg tablet,12 hr 150 mg PO BID 02/06/22 sustained-release Previous Rx's ?Medication ?Instructions ?Recorded Breztri Aerosphere 160 2 inh inhalation BID 90 days #3 ea 06/17/24 mcg-9mcg-4.8mcg/actuation HFA aerosol inhaler (nscazjpytm-sbqyuegk-pqfudvmtin) Combivent Respimat 20 mcg-100 1 puff PO QID 30 days #3 ea 09/03/24 mcg/actuation solution for inhalation (ipratropium-albuterol) Allergies Allergy/AdvReac Type Severity Reaction Status Date / Time No Known Allergies Allergy Verified 10/03/24 12:17 Review of Systems Review of Systems: Yes all other systems are reviewed and are negative [facility] Past Medical History Attestation statement: The following information was validated with the patient. Source: old records reviewed and nursing notes reviewed Medical History COPD exacerbation Moderate COPD (chronic obstructive pulmonary disease) Social History Social History Years Smoked: 40 yrs Smoked in Last 30 Days: No Use of substances other than those prescribed or required for medical reasons: No Advance Directives: No Advance Directives Information Provided: Yes Do you have a plan to hurt others: No Plan Physical Exam ED Vital Signs: Vital Signs - 24 hr 10/03/24 12:11 10/03/24 13:40 10/03/24 13:46 Temperature 98.4 F 97.9 F 97.9 F Pulse Rate 84 78 78 Respiratory Rate 20 18 18 Blood Pressure 149/83 H 156/74 H 156/74 H Pulse Oximetry 92 92 92 Oxygen Delivery Method Nasal Cannula Nasal Cannula Nasal Cannula Oxygen Flow Rate 1 1 BMI result Body Mass Index 41.2 Mildly hypertensive. afebrile. General: Well appearing, in no acute distress. On nasal cannula Skin: Warm, dry, intact. No rashes or lesions. Head: Normocephalic, atraumatic. EENT: Hearing is intact b/l. Conjunctiva clear. Sclera is anicteric. Cardiac: Chest wall symmetric. RRR. Lungs: Normal respiratory effort without accessory muscle use. On 1 L nasal cannula. Breath sounds diminished bilaterally, no adventitious breath sounds. No tripoding. Speaking complete sentences. Abdomen: Soft, non-tender, non-distended. No tenderness or guarding. Positive BS x4. Back: No midline spinous or paraspinal tenderness. No step off deformity. Ext: Upper and lower extremities atraumatic, without tenderness, deformity, swelling or erythema. No pitting edema. No calf tenderness bilaterally. Neuro: AOx3. Normal speech. Sensation intact to light touch in bilateral LE. Psych: Appropriate mood and affect. Responds appropriately to questions. Course Course Course Narrative: This is an RME performed by [employer] [facility] [employer]: Additional HPI, ROS, PE not included below will be deferred to primary provider. Patient is a 69-year-old female reporting insomnia and feeling tremulous. She is quite upset, tearful and crying in triage. States only sleeping 2-3 hours. Awakes feeling as thought she can not breath despite using CPAP. Got a new mask months ago as prior was ill fitting. Also today she awoke with midline lower back pain this morning, new/ acute onset, no fall or injury. No bladder bowel dysfunction/incontinence. No symptoms. Plan: Serum labs, U/A Reevaluation(s) Reevaluation #1: 1429 -- CBC without leukocytosis or left shift. No anemia. H&H stable. Chemistry without acute electrolyte abnormality requiring intervention. No LEANA. Liver function WNL. BNP WNL. Troponin WNL. Given onset of symptoms and timing to presentation, delta trop not indicated at this time. ACS is unlikely. Urine without infection. On chest x-ray, there is a faint patchy opacity best seen to left mid lung zone on PA view. I did review prior chest x-rays from over 10 years ago. Findings are unchanged from then. unlikely acute pneumonia. She does not endorse cough or fevers. X-ray lumbar spine showing moderate degenerative changes, no acute fracture. > discussed all workup results with patient. Given her history of JF and COPD, sleep medication contraindicated. I advised her to trial melatonin at home. She does have follow up with her primary care provider soon. Advised good sleep hygiene. Patient has remained stable throughout ED visit today. Discussed worrisome signs and symptoms and when to return to the ED. All questions answered at this time. Patient is agreeable with disposition and stable for discharge. Medical Decision Making Medical Decision Making MDM Narrative: 69-year-old female with pmhx significant for COPD on 1-3L O2 and JF on CPAP presents to the ED today for evaluation of insomnia x2 weeks. Vital signs stable, afebrile. She is nontoxic appearing in no acute distress. Please refer to physical exam portion for findings. Differential diagnosis includes anxiety, insomnia, anemia, electrolyte abnormality, MSK sprain/strain, ACS, arrhythmia Unlikely cauda equina, Guillain-[place], epidural abscess, cord compression. Plan for labs, chest x-ray, x-ray lumbar spine, viral swabs, re-evaluation Differential Diagnosis Differential Diagnoses: The differential diagnosis associated with the presentation includes as above Admission/Observation Not indicated Lab Data MDM Lab Attestation statement: I reviewed the patient's lab results. As above 10/03/24 12:32 10/03/24 12:32 Labs: Lab Results 10/03/24 Range/Units 12:32 WBC 10.7 (4.8-10.8) X10*3/uL RBC 5.30 (4.20-5.50) X10*6/uL Hgb 16.0 (12.0-16.0) g/dl Hct 49.4 H (37.0-47.0) % MCV 93.2 (80.0-98.0) fL MCH 30.2 (27.0-33.0) pg MCHC 32.4 (31.0-35.0) g/dl RDW 14.1 (11.0-16.0) % Plt Count 348 (160-400) X10*3/uL MPV 9.8 (9.4-12.3) fL Immature Gran % (Auto) 0.5 H (0.0-0.4) % Neut % (Auto) 63.6 (45-73) % Lymph % (Auto) 25.6 (20-40) % [place] % (Auto) 8.7 (2-11) % Eos % (Auto) 1.1 (0-4) % Baso % (Auto) 0.5 (0-2) % Lymph # (Auto) 2.7 (1.2-4.9) X10*3/uL [place] # (Auto) 0.9 (0.1-1.2) X10*3/uL Eos # (Auto) 0.1 (0.0-0.4) X10*3/uL Baso # (Auto) 0.1 (0.0-0.2) X10*3/uL Abs Immat Gran (auto) 0.05 H (0.00-0.03) X10*3/uL Absolute Neuts (auto) 6.8 (2.0-8.3) x10*3/uL Absolute Nucleated RBC 0.000 (0.0-0.012) X10*3/uL Nucleated RBC % (auto) 0.0 (0.0-0.2) /100WBC Sodium 139 (135-145) mmol/L Potassium 4.8 (3.3-5.1) mmol/L Chloride 107 (96-108) mmol/L Carbon Dioxide 25 (22-29) mmol/L Anion Gap 12 (12-20) BUN 15 (9-16) mg/dL Creatinine 0.92 (0.5-1.4) mg/dL Estim Creat Clear Calc 61.3 Estimated GFR > 60 Random Glucose 96 (60-115) mg/dL Calcium 10.2 (8.4-10.2) mg/dL Magnesium 2.2 (1.6-2.6) mg/dL Total Bilirubin 0.3 (0.0-1.0) mg/dL AST 36 H (5-31) U/L ALT 33 H (0-31) U/L Alkaline Phosphatase 52 (39-117) U/L Troponin I High Sens 4.9 (<3.5-17.0) ng/L B-Natriuretic Peptide 46 (<100) pg/mL Total Protein 8.3 H (6.5-8.0) g/dL Albumin 4.2 (3.5-5.0) g/dL Urine Color Yellow Urine Appearance Clear Urine pH 6.0 (5.0-9.0) Ur Specific [place] <= 1.005 (1.005-1.025) Urine Protein Negative (Neg-Trace) mg/dL Urine Glucose (UA) Negative (Negative) mg/dL Urine Ketones Negative (Negative) mg/dL Urine Blood Negative (Negative) Urine Nitrite Negative (Negative) Ur Leukocyte Esterase Negative (Negative) Independent Interpretation I performed an independent interpretation of an: Plain X-Ray Interpretation: Chest x-ray without focal consolidation or infiltrate X-ray lumbar spine without acute fracture or subluxation Radiology Impression Discussion of test interpretation with radiology: I have reviewed the radiologist's reading. Radiologist Impression: Procedure(s): XR lumbar spine 2-3V Accession Number(s): [id number] cc: Angely Garrett; Lisa Fitzpatrick MD~ CLINICAL HISTORY: atraumatic midline low back pain Radiographs of the lumbar spine, 3 views Comparison: None Findings: Alignment is within normal limits. No fracture. The vertebral body heights are preserved. There is hdox-cy-rmesmtig multilevel intervertebral disc space narrowing with ohka-tk-vtzguwoz endplate osteophytosis. Mild endplate sclerosis at L1/L2. Moderate lower lumbar facet hypertrophy. Vascular calcifications. Hernia mesh. Cholecystectomy clips. Impression: No acute findings. Moderate degenerative change. Procedure(s): XR chest 2V Accession Number(s): [id number] cc: Brianda Noble CNP; Lisa Fitzpatrick MD~ CLINICAL HISTORY: COUGH SOB Chest Radiographs, 2 views Comparison: None Findings: No cardiomegaly. Normal mediastinal contours. No pneumothorax. Question interstitial prominence. Faint patchy opacity which is best seen in the left mid lung zone on the PA view. Blunting of costophrenic angle posteriorly may indicate trace pleural fluid. Hiatal hernia. Normal upper abdomen. No acute fracture. Impression: Suspect developing pneumonia if there are signs/symptoms of infection. Mild edema may also be considered. External Record Review External record reviewed: Inpatient record Chronic Conditions Patient?s care impacted by: Other (COPD jf) Social Determinants Patient?s care significantly limited by Social Determinants of Health including: Other Social Determinant of Health Critical Care Time Critical Care Time Critical Care Time: No Discharge Plan Discharge Clinical Impression: Insomnia, Lumbar back pain Patient Disposition: Home, Self-Care Instructions: Insomnia (ED), Lower Back Exercises (ED) Additional Instructions: Your blood work today is reassuring. Your urine is negative for infection. Your chest x-ray does not demonstrate any acute findings. The x-ray of your low back shows chronic degenerative changes. You may taken tylenol and motrin as needed for your back pain. Regarding your insomnia, we are limited in what can be prescribed to you given your sleep apnea and COPD. We do not want to cause any increased respiratory depression. You may trial over the counter melatonin. I suggest good sleep hygiene: - regular bedtime and rise time - avoid napping - limit caffeine, limit alcohol, avoid nicotine - staying active - avoid large meals close to bedtime - avoid watching TV, limit screen time prior to going to bed Please follow up with your PCP Return with new or worsening symptoms. In the case of an emergency call 911. Prescriptions: No Action Breztri Aerosphere 160-9-4.8 mcg/actuation HFA aerosol inhaler 2 inh inhalation BID 90 Days Qty: 3 3RF Combivent Respimat 20-100 mcg/actuation mist 1 puff PO QID 30 Days Qty: 3 4RF levothyroxine 175 mcg tablet 175 mcg PO DAILY pantoprazole 40 mg tablet,delayed release (DR/EC) 40 mg PO DAILY oxybutynin chloride 15 mg tablet extended release 24hr 15 mg PO DAILY fluoxetine 60 mg tablet 60 mg PO DAILY latanoprost 0.005 % drops ophthalmic (eye) bupropion HCl 150 mg tablet sustained-release 12 hr 150 mg PO BID Referrals: Lisa Fitzpatrick MD [Primary Care Provider] - Interventions: ED Discharge Assessment Last Done: 10/03/24 16:42 Discharge Date/Time: 10/03/24 16:43 Print Language: Belarusian
[2024-10-03 12:37] LABS: MANUAL DIFF FLAG NO
[2024-10-03 12:54] LABS: Alanine Aminotransferase 33 U/L (0-31); Albumin Level 4.2 g/dL (3.5-5.0); Alkaline Phosphatase 52 U/L (39-117); Anion Gap 12 (12-20); Aspartate Amino Transferase 36 U/L (5-31); Bilirubin Total 0.3 mg/dL (0.0-1.0); Blood Urea Nitrogen 15 mg/dL (9-16); Calcium 10.2 mg/dL (8.4-10.2); Carbon Dioxide 25 mmol/L (22-29); Chloride 107 mmol/L (96-108); Creatinine Clr Calc Pharmacy 61.3; Estimated Glomerular Filt Rate > 60; Glucose Random 96 mg/dL (60-115); Magnesium 2.2 mg/dL (1.6-2.6); Potassium 4.8 mmol/L (3.3-5.1); Sodium 139 mmol/L (135-145); Total Protein 8.3 g/dL (6.5-8.0)
[2024-10-03 12:58] LABS: Basophils Absolute Auto 0.1 X10*3/uL (0.0-0.2); Basophils Percent Auto 0.5 % (0-2); Eosinophils Absolute Auto 0.1 X10*3/uL (0.0-0.4); Eosinophils Percent Auto 1.1 % (0-4); Hematocrit 49.4 % (37.0-47.0); Imm Gran Abs Auto 0.05 X10*3/uL (0.00-0.03); Imm Gran Pct Auto 0.5 % (0.0-0.4); Lymphocytes Absolute Auto 2.7 X10*3/uL (1.2-4.9); Lymphocytes Percent Auto 25.6 % (20-40); Mean Corpuscular HGB Conc 32.4 g/dl (31.0-35.0); Mean Corpuscular Hemoglobin 30.2 pg (27.0-33.0); Mean Corpuscular Volume 93.2 fL (80.0-98.0); Mean Platelet Volume 9.8 fL (9.4-12.3); Monocytes Absolute Auto 0.9 X10*3/uL (0.1-1.2); Monocytes Percent Auto 8.7 % (2-11); Neutrophils Absolute Auto 6.8 x10*3/uL (2.0-8.3); Neutrophils Percent Auto 63.6 % (45-73); Platelet Count 348 X10*3/uL (160-400); Red Cell Distribution Width 14.1 % (11.0-16.0); White Blood Count 10.7 X10*3/uL (4.8-10.8)
[2024-10-03 13:00] LABS: Appearance Urine Clear; B Type Natriuretic Peptide 46 pg/mL (<100); Color Urine Yellow; Glucose Urine UA Negative (Negative); Leukocyte Esterase Urine Negative (Negative); Nitrite Urine Negative (Negative); Specific Gravity - Urine <= 1.005 (1.005-1.025); Urine Blood Negative (Negative); Urine Ketones Negative (Negative); Urine Protein Negative (Neg-Trace)
--- NOTE | 2024-10-03 13:30 | ECG_ITS ---
Test Reason : CP Blood Pressure : */* mmHG Vent. Rate : 77 BPM Atrial Rate : 77 BPM P-R Int : 152 ms QRS Dur : 74 ms QT Int : 386 ms P-R-T Axes : 88 59 65 degrees QTcB Int : 436 ms Normal sinus rhythm Low voltage QRS Nonspecific T wave abnormality Abnormal ECG When compared with ECG of 16-Jun-2012 02:57, No significant changes seen Referred By: Angely Garrett Electronically Signed By: LILIAM LUTZ
[2024-10-03 13:40] VITALS: BP 156/74; PULSE 78; RESP 18; TEMP 36.6; O2SAT 92
[2024-10-03 13:46] VITALS: BP 156/74; PULSE 78; RESP 18; TEMP 36.6; O2SAT 92
--- NOTE | 2024-10-03 14:00 | PC.NURSE ---
patient a&ox3 labs previously drawn, vss, pt has c/o low back pain, wears 1-3L nc at baseline due to copd, cxr performed, awaiting results and to speak with provider, call noriega within reach, plan of care ongoing
[2024-10-03 14:01] LABS: Troponin-I High Sensitivity 4.9 ng/L (<3.5-17.0)
[2024-10-03 16:42] VITALS: BP 156/74; PULSE 78; RESP 18; TEMP 36.6; O2SAT 92
== END 2024-10-03 16:43 | disposition home or self-care (01) ==
PROVIDERS: Nurse Practitioner Family; Physician Assistant Medical; Emergency Provider Emergency Medicine Emergency Medical Services; PCP Internal Medicine
DX: G47.00 Insomnia, unspecified (principal); M54.50 Low back pain, unspecified; J44.9 Chronic obstructive pulmonary disease, unspecified; R45.83 Excessive crying of child, adolescent or adult; Z63.4 Disappearance and death of family member; Z79.899 Other long term (current) drug therapy
CPT/HCPCS: 36415; 71046; 72100; 80053; 81003; 83735; 83880; 84484; 85025; 93005; 99283; 99284

== ENCOUNTER → 2024-10-03 12:18 | Outpatient (BNV) | payer OTHER, SELFPAY | PROVIDERS: Emergency Provider Emergency Medicine Emergency Medical Services; PCP Internal Medicine; Visit Provider Radiology Diagnostic Radiology | DX: R06.02 Shortness of breath (principal); M54.50 Low back pain, unspecified | CPT/HCPCS: 71046; 72100 ==

== ENCOUNTER → 2024-10-03 13:30 | Outpatient (BNV) | payer OTHER, SELFPAY | PROVIDERS: Emergency Provider Emergency Medicine Emergency Medical Services; PCP Internal Medicine; Visit Provider Internal Medicine | DX: R94.31 Abnormal electrocardiogram [ECG] [EKG] (principal); R07.9 Chest pain, unspecified | CPT/HCPCS: 93010 ==

== ENCOUNTER 2025-03-25 10:32 | Outpatient (AMB) | payer OTHER, SELFPAY ==
--- NOTE | 2025-03-25 10:48 | A.OFFVIS_ITS ---
Vital Signs 03/25/25 10:49 Height 5 ft 1 in Weight 217 lb BMI 41.0 BP 111/60 Blood Pressure Location Rt brachial Position Sitting Pulse 92 Pulse Source Pulse Oximeter Pulse Oximetry (%) 95 Oxygen Delivery Method Nasal Cannula Oxygen Flow Rate 2 Intake Visit Reasons: dyspnea Allergies No Known Allergies Allergy (Verified 03/25/25 10:52) HPI HPI dyspnea: Details: 69-year-old lady, former 20+ years smoker, quit 2004, followed for underlying moderate to severe COPD and JF on CPAP. Patient has completed lung cancer screening program.? She continues on BrezTri secondary to inability to tolerate powder inhalers, and her symptoms are well controlled. She has also been using Combivent. Patient continues to be compliant with her CPAP with good control of her underlying JF symptoms. She denies recent exacerbations. She does complain of recent episodes of difficulty swallowing meat. [facility] Medical History COPD exacerbation Moderate COPD (chronic obstructive pulmonary disease) Social History Years Smoked: 40 yrs Review of Systems Const Denies daytime sleepiness, Denies excessive sweating, Denies fatigue, Denies fever(s), Denies lethargy, Denies malaise, Denies night sweats, Denies snoring and Denies weight loss Eyes Denies blurry vision and Denies itchy eyes ENT Reports dysphagia, Denies nasal congestion, Denies post nasal drip, Denies sinus pain, Denies sinus pressure and Denies other ( Thrush) Card Denies chest pain, Denies pedal edema, Denies dyspnea, Denies orthopnea and Denies paroxysmal nocturnal dyspnea Resp Denies cough, Denies hemoptysis, Denies excessive phlegm production, Denies dyspnea, Denies snoring and Denies wheezing GI Denies abdominal pain, Reports dysphagia and Denies heartburn Musc Denies myalgias, Denies arthralgias and Denies joint swelling Skin/Breast Denies rash Neuro Denies memory loss and Denies seizure-like activity Psych Denies abnormal sleep pattern, Denies anxiety and Denies memory loss Endo Denies excessive sweating, Denies fatigue and Denies heat intolerance Phil/Lymph Denies easy bruising Aller/Immun Denies itchy eyes, Denies seasonal rhinorrhea and Denies wheezing Physical Exam Vital Signs: Last Vital Signs Pulse 92 03/25/25 10:49 BP 111/60 03/25/25 10:49 Pulse Ox 95 03/25/25 10:49 Oxygen Delivery Method Nasal Cannula 03/25/25 10:49 Oxygen Flow Rate 2 03/25/25 10:49 BMI result Body Mass Index 41.0 Const General: no acute distress and alert Nutritional Appearance: obese Orientation/consciousness: Other orientation findings ( oriented) HEENT Head: Yes atraumatic Eyes General: appearance normal, both eyes and all related structures Sclerae: sclerae normal EOM: EOMs intact bilaterally Neck Neck: Yes supple Lymphatic: no lymphadenopathy noted Resp Effort & Inspection: normal respiratory effort and no use of accessory muscles Auscultation: clear to auscultation bilaterally Cardio Rate: regular rate Rhythm: regular rhythm Heart sounds: no gallops, no murmurs and no rubs Skin General skin exam: other ( warm) Extrem General: No clubbing, No cyanosis and No edema Assessment & Plan Assessment & Plan (1) Asthma-COPD overlap syndrome: Code(s): J44.9 - Chronic obstructive pulmonary disease, unspecified Category: Medical Plan: Well controlled on current regimen of Breztri, Combivent, and albuterol MDI. Continue current regimen. (2) Supplemental oxygen dependent: Code(s): Z99.81 - Dependence on supplemental oxygen Category: Medical Plan: Continue supplemental oxygen to maintain O2 saturation above 88%. (3) JF on CPAP: Code(s): G47.33 - Obstructive sleep apnea (adult) (pediatric); Z99.89 - Dependence on other enabling machines and devices Category: Medical Plan: Therapy and compliance report reviewed - patient is benefitting from and is compliant with noninvasive positive pressure ventilation treatment, using it greater than 70% of the time, more than 4 hours per night. Continue current CPAP therapy. (4) Difficulty swallowing solids: Code(s): R13.10 - Dysphagia, unspecified Category: Medical Plan: Will obtain modified barium swallow. Orders: Orders FL Modified Barium Swallow Today R13.10 - Dysphagia, unspecified Coding Level of Care Code Est Pt Level 4 (77424) Complex EM visit Add On G2211 Diagnoses Asthma-COPD overlap syndrome J44.9 Supplemental oxygen dependent Z99.81 JF on CPAP G47.33; Z99.89 Difficulty swallowing solids R13.10
[2025-03-25 10:49] VITALS: BP 111/60; PULSE 92; O2SAT 95; BMI 41.0
== END 2025-03-25 11:09 | disposition home or self-care (01) ==
LOC: HO.HPS 10:32
PROVIDERS: PCP Internal Medicine; Visit Provider Internal Medicine Pulmonary Disease
DX: J44.9 Chronic obstructive pulmonary disease, unspecified (principal); Z99.81 Dependence on supplemental oxygen; G47.33 Obstructive sleep apnea (adult) (pediatric); Z99.89 Dependence on other enabling machines and devices; R13.10 Dysphagia, unspecified
CPT/HCPCS: 99214

== ENCOUNTER → 2025-03-25 10:32 | Outpatient (BNVA) | payer OTHER, SELFPAY | PROVIDERS: PCP Internal Medicine; Visit Provider Internal Medicine Pulmonary Disease | DX: J44.9 Chronic obstructive pulmonary disease, unspecified (principal); G47.33 Obstructive sleep apnea (adult) (pediatric); Z99.81 Dependence on supplemental oxygen; Z99.89 Dependence on other enabling machines and devices; R13.10 Dysphagia, unspecified | CPT/HCPCS: 99212 ==

== ENCOUNTER 2025-05-03 13:38 | Outpatient (REF) | payer OTHER, SELFPAY ==
--- NOTE | ~2025-05-03 | FL_ITS ---
EXAMINATION: MODIFIED BARIUM SWALLOW CLINICAL INFORMATION: Dysphagia COMPARISON: None available. TECHNIQUE: Modified barium swallow performed by speech pathologist. FINDINGS: Patient swallowed liquids and solids of varying consistency. There is aspiration noted with thin liquids. FLUOROSCOPY TIME: 50 seconds DOSE AREA PRODUCT: 38 uGy-m2 (microgray-meter squared) FL/FL Modified Barium Swallow IMPRESSION: Modified barium swallow performed by speech pathologist. Aspiration noted with thin liquids. See speech pathology report for details. Electronically signed by: Landry Cortes MD 05/03/2025 04:04 PM KATHRINE MCKEON
--- OUTSIDE RECORDS SUMMARY | 2025-05-04 07:10 | XMS_ITS | Clinical Summary ---
Author Organization [facility] [address] [place] [address] [place] [phone] Phone Care Team Providers [employer] Combination Name Role Phone Lisa Fitzpatrick MD Primary Care Provider [phone] Allergies No known active allergies Medications ascorbate calcium/bioflavon oid (REINA-C WITH BIOFLAVONOIDS ORAL) Take 1,000 mg by mouth daily. Active ipratropium-albut Karin (Combivent Respimat) 20-100 mcg/actuation inhaler INHALE 1 PUFF BY MOUTH FOUR TIMES A DAY 07/29/19 19 Active UNABLE TO FIND CPAP HISTORICAL (HISTORICAL CPAP) 12 cm by Nasal route at bedtime. Regional-press ure 6-16 Active latanoprost (XALATAN) 0.005 % ophthalmic solution 02/05/20 19 Active Oxygen Therapy (O2) gas Inhale into the lungs. Active eye vitamin supplement (OCUVITE EYE HEALTH FORMULA) capsule capsule Take 1 tablet by mouth daily. Active pantoprazole (PROTONIX) 40 mg EC tablet Take 1 tablet (40 mg total) by mouth 1 (one) time each day. Do not crush, chew, or split. 90 each 1 12/01/19 25 Active buPROPion SR (WELLBUTRIN SR) 150 mg 12 hr tablet Take 1 tablet (150 mg total) by mouth 2 (two) times a day. Do not crush, chew, or split. 180 tablet 1 01/14/20 25 Active budesonide-glycop yr-formoterol (Breztri Aerosphere) 160-9-4.8 mcg/actuation HFA aerosol inhaler inhaler Inhale 2 puffs by mouth 2 (two) times a day. External pulm Active Synthroid 175 mcg tabletIndications :Hypothyroidism following radioiodine therapy Take 1 tablet (175 mcg total) by mouth 1 (one) time each day before breakfast. 90 tablet 1 04/20/20 25 Active Synthroid 175 mcg tabletIndications :Hypothyroidism following radioiodine therapy Take 1 tablet (175 mcg total) by mouth 1 (one) time each day before breakfast. 90 tablet 1 11/02/19 25 025 Discontin ued(Reord er) Active Problems Problem Noted Date Diagnosed Date Mucous cyst of digit of right hand 09/14/2024 GERD (gastroesophageal reflux disease) Overview (04/27/2024): Upper GI endoscopy 03/03/2009, 7-cm hiatal hernia. No other lesions. Assessment & Plan (05/31/2024 12:20 PM EST): Anxiety 11/03/2023 CKD (chronic kidney disease) stage 3, GFR 30-59 ml/min (CMS/HCC V24, CMS/HCC V28) 04/29/2022 Assessment & Plan (05/31/2024 12:20 PM EST): Class 2 obesity 01/23/2018 Pulmonary nodules 01/01/2018 Actinic keratoses 04/30/2017 Overview (04/27/2024): Actinic keratoses 05/02 face JF and COPD overlap syndrome (CMS/HCC V24, CMS/ HCC V28) 04/03/2017 Stage 2 moderate COPD by GOL D classification (CMS/HCC V24, CMS/HCC V28) 04/03/2017 Assessment & Plan (05/31/2024 12:20 PM EST): [...] Assessment & Plan (05/31/2024 12:20 PM EST): Immunizations Immunization Administration Dates Next Due Influenza Quadravalent, 0.5m [...] 13, PCV13) 2mo and older 01/24/2020 Pneumococcal conjugate 20 va lent (Prevnar 20, PCV 20) 2mo and older 09/02/2024 Pneumococcal polysaccharide 23 valent (Pneumovax 23) 2yo and older 04/17/2018,04/16/2010 RSV, bivalent, protein subun it RSVpreF, 0.5mL, Preservative Free (ABRYSVO) 50yo and older or 32 through 36 wks of 03/07/2023 RSV, bivalent, protein subun it RSVpreF, 0.5mL, Preservative Free (Arexvy) 50yo and older 04/04/2023 Tdap Tetanus diptheria acell ular pertussis (Boostrix; Adacel) 7yo and older 07/26/2019,06/24/2007 Zoster Live 12/25/2015 Zoster recombinant (Shingrix ) 19yo and older 07/27/2021,03/30/2021 Surgical History Surgery Date Site/Laterality Comments HYSTERECTOMY 1983 OTHER SURGICAL HISTORY Graves disease X 3 TONSILLECTOMY 1957 OTHER SURGICAL HISTORY 21/03 L BREAST CYST ESOPHAGOGASTRODUODENOSCOPY 03/03/2009 : 7 cm hiatal hernia. CHOLECYSTECTOMY 03/14/2009 EYE SURGERY 10/28 , Garth portillo for pressurein eyes BREAST BIOPSY Right cyst asp-many yrs ago CYSTOCELE REPAIR HAND SURGERY 12/10/2024 Right Right index DIP mucoid cyst excision Medical History Medical History Date Comments Irritable bowel syndrome GERD (gastroesophageal reflux disease) Fatty liver 09/18/2009 Actinic keratoses 04/30/2017 CKD (chronic kidney disease) stage 3, GFR 30-59 ml/min ([facility] V24, [facility] V28) 04/29/2022 Anxiety 11/03/2023 Depressive disorder 11/12/2005 Graves' disease 02/22/2009 History of radio active iodine treatment for this. Hypothyroidism following rad ioiodine therapy 11/12/2005 RA iodine for graves JF and COPD overlap syndrom e ([facility] V24, [facility] V28) 04/03/2017 PLMD (periodic limb movement disorder) 0 Stage 2 moderate COPD by GOL D classification ([facility] V24, [facility] V28) 04/03/2017 Urinary incontinence 11/12/2005 Family History Medical [...] drink = 0.6 oz pur e alcohol) Housing Instability Answer Date Recorde d Are you worried that in the next 2 months you may not have stable housing? No 01/13/2025 Food Access & Nutrition Answer Date Rec orded Do you have access to a vari ety of food including fruits and vegetables? Yes 01/13/2025 Health Literacy Answer Date Recorded How often do you need to hav e someone help you when you read instructions, pamphlets, or other written material from your doctor or pharmacy? Never 01/13/2025 Caregiver: How often do you need to have someone help you when you read instructions, pamphlets, or other written material from your doctor or pharmacy? Not on file 01/13/2025 Transportation Answer Date Recorded Has the lack of transportati on kept you from meetings, work, or from getting things needed for daily living? No Has the lack of transportati on kept you from medical appointments or from getting medications? No 01/13/2025 Social Isolation Answer Date Recorded How often do you feel lonely or isolated from ose around you? Never 01/13/2025 Food Risk Answer Date Recorded Within the past 12 months we worried whether our food would run out before we got money to buy more. Never true 01/13/2025 Within the past 12 months th e food we bought just didn't last and we didn't have money to get more. Never true 01/13/2025 Dependent Care Answer Date Recorded Do you need help finding or paying for care for your loved ones. For example, child and family counselor or elderly care for an older adult? No 01/13/2025 Education Answer Date Recorded Do you think completing more education or training, like finishing a GED, going to college, or learning a trade, would be helpful for you? No 01/13/2025 Employment and Income Answer Date Recor ded During the last four weeks, have you been actively looking for work? No 01/13/2025 Living Situation Answer Date Recorded What is your living situation? Unrecognized valu e 01/13/2025 Comments No Sex and Gender Information Value [...] Sign Reading Time Taken Comments Blood Pressure 106/64 01/13/2025 11:16 AM EDT Pulse 75 01/13/2025 11:16 AM EDT Temperature 35.9 C (96.7 F) 01/13/2025 11:16 AM EDT Respiratory Rate 14 01/13/2025 11:16 AM EDT Oxygen Saturation 92% 01/13/2025 11:45 AM EDT Inhaled Oxygen Concentration - - Weight 99.8 kg (220 lb) 01/13/2025 11:16 AM EDT Height 156.2 cm (5' 1.5 ) 01/13/2025 11:16 AM ED T Body Mass Index 40.9 01/13/2025 11:16 AM EDT Plan of Treatment Upcoming Encounters Date Type Department Care Team (Late st Contact Info) Description 07/18/2025 12:45 PM EST Office Visit [facility] [address] [place], [place] [phone] Lisa Fitzpatrick MD [address] [place], [place] 07/28/2025 2:00 PM EST Consult Nephrology - [address] [phone] Anthony Fabian MD [address] [phone] Health Maintenance Due Date Last Done Comments COVID-19 Vaccine ( season) 2025 09/02/2024, 02/26/2024, 03/14/2023, Additional history exists Influenza Vaccine (#1) 2025 , 04/04/2023, 02/19/2023, Additional history exists Falls Risk Assessment 05/31/2025 05/31/2024 Social Influencers of Health Screening 01/13/2026 01/13/2025 Breast Cancer Screening 09/03/2026 09/04/19 25, 08/26/2023, 08/19/2022, Additional history exists Colorectal Cancer Screening: Stool Based Tests (FOBT/FIT) 02/03/2028 02/02/2025 DTaP,Tdap,and Td Vaccines (3 - Td or Tdap) 07/26/2029 07/26/2019, 06/24/2007 Cholesterol Screening (Lipid Panel) 01/13/2030 01/13/2025, 10/21/2023, 10/21/2023 Osteoporosis Screening (Bone Density Screening) 02/10/2030 02/11/2020 Hepatitis C Screening Completed 06/05/2015 Zoster Vaccines Completed 07/27/2021, 03/16, 12/25/2015 RSV Immunization Adult Patients Completed 04/04/2023, 03/07/2023 Pneumococcal Vaccine: 50+ Years Completed 09/02/2024, 01/24/2020, 04/17/2018, Additional history exists Depression Screening Completed 01/13/2025 Colorectal Cancer Screening: FIT-DNA (Cologuard) Discontinued 02/02/2025, 11/13/2023, 11/13/2023 HIB Vaccines Aged Out No longer eligi [...] age to complete this topic Meningococcal B Vaccine Aged Out No l onger eligible based on patient's age to complete this topic RSV Immunization Patients Under 20 months Aged Out No longer eligible based on patient's age to complete this topic Varicella Vaccines Aged Out No longer eligible based on patient's age to complete this topic Procedures Procedure Name Priority Date/Time Associated Diagnosis Comments LAB COLOGUARD COLON CANCER SCREEN Routine 02/02/2025 5:00 AM EDT Screening for malignant neoplasm of colon LIPID PANEL WITH REFLEX TO DIRECT LDL Routine 01/13/2025 12:05 PM EDT Hypothyroidism following radioiodine therapy MG MAMMO DIGITAL SCREENING W RAFFI BILAT Routine 09/03/2024 10:52 AM EDT Encounter for screening mammogram for breast cancer DXA BONE DENSITY STUDY 1+ SITS AXIAL SKEL Routine 02/11/2020 10:59 AM EDT Other specified personal risk factors, not elsewhere classified HM HEPATITIS C SCREENING Routine 06/05/2015 from Last 3 Months or Most Recently Relevant to Health Maintenance Results * Cologuard?? colon cancer screening (02/02/2025 5:00 AM EDT) COLOGUARD Negative Negative [facility] Comment: The Cologuard (TM) test was performed on this specimen. NEGATIVE TEST RESULT. A negative Cologuard result indicates a low likelihood that a colorectal cancer (CRC) or advanced adenoma (adenomatous polyps with more advanced pre-malignant features) is present. The chance that a person with a negative Cologuard test has a colorectal cancer is less than 1 in 1500 (negative predictive value >99.9%) or has an advanced adenoma is less than 5.3% (negative predictive value 94.7%). These data are based on a prospective cross-sectional study of 10,000 individuals at average risk for colorectal cancer who were screened with both Cologuard and colonoscopy. (Roxana Virk et al, N Engl J Med 2014;370(14):1286- 1297) The normal value (reference range) for this assay is negative. COLOGUARD RE-SCREENING RECOMMENDATION: Periodic colorectal cancer screening is an important part of preventive healthcare for asymptomatic individuals at average risk for colorectal cancer. Following a negative Cologuard result, the [place] Cancer Society and U.S. Multi-Society Task Force screening guidelines recommend a Cologuard re-screening interval of 3 years. References: [place] Cancer Society Guideline for Colorectal Cancer Screening: https://www.cancer.org/cancer/acuel-rdojxs-hekcza/nlhkomyov-nedmaxoif-zrimrqq/ac s-rec ommendations.html.; Dave GUERRA, Xiao CHEATHAM, Leatha MarvinK, Colorectal Cancer Screening: Recommendations for Physicians and Patients from the U.S. Multi-Society Task Force on Colorectal Cancer Screening , Am J Gastroenterology 2017; 112:0292-2548. TEST DESCRIPTION: Composite algorithmic analysis of stool DNA-biomarkers with hemoglobin immunoassay. Quantitative values of individual biomarkers are not reportable and are not associated with individual biomarker result reference ranges. Cologuard is intended for colorectal cancer screening of adults of either sex, 45 years or older, who are at average-risk for colorectal cancer (CRC). Cologuard has been approved for use by the U.S. FDA. The performance of Cologuard was established in a cross sectional study of average-risk adults aged 50-84. Cologuard performance in patients ages 45 to 49 years was estimated by sub-group analysis of near-age groups. Colonoscopies performed for a positive result may find as the most clinically significant lesion: colorectal cancer [4.0%], advanced adenoma (including sessile serrated polyps greater than or equal to 1cm diameter) [20%] or non- advanced adenoma [31%]; or no colorectal neoplasia [45%]. These estimates are derived from a prospective cross-sectional screening study of 10,000 individuals at average risk for colorectal cancer who were screened with both Cologuard and colonoscopy. (Roxana Ornelas al, N Engl J Med 2014;370(14):3127-8869.) Cologuard may produce a false negative or false positive result (no colorectal cancer or precancerous polyp present at colonoscopy follow up). A negative Cologuard test result does not guarantee the absence of CRC or advanced adenoma (pre-cancer). The current Cologuard screening interval is every 3 years. ([place] Cancer Society and U.S. Multi-Society Task Force). Cologuard performance data in a 10,000 patient pivotal study using colonoscopy as the reference method can be accessed at the following location: www.Quantason/results. Additional description of the Cologuard test process, warnings and precautions can be found at www.Apart[employer] Add[employer].com. Stool 02/02/2025 5:00 AM EDT 02/03/2025 1:39 PM EDT us Ana Cristina [facility] ORDERA BLES Final Result [facility] [employer] [address] [place] [address] [facility] [address] [place] [id number] * (ABNORMAL) Lipid panel with reflex to direct LDL (01/13/2025 12:05 PM EDT) Cholesterol 141 0 - 200 mg/dL LAB CHEMISTRY METHOD 01/13/2025 5:17 PM EDT [facility] Triglycerides 152(H) 0 - 150 mg/dL LAB CHEMISTRY METHOD 01/13/2025 5:17 PM EDT [facility] HDL 43 >=40 mg/dL LAB CHEMISTRY METHOD 01/13/2025 5:17 PM EDT [facility] LDL Calculated 68 0 - 100 mg/dL LAB CHEMISTRY METHOD 01/13/2025 5:17 PM EDT [facility] VLDL Cholesterol Placido 30.4 mg/dL LAB CHEMISTRY METHOD 01/13/2025 5:17 PM EDT [facility] Non HDL Chol. (LDL+VLDL) 98 <145 mg/dL LAB CHEMISTRY METHOD 01/13/2025 5:17 PM EDT [facility] Chol/HDL Ratio 3.3 0.0 - 4.4 LAB CHEMISTRY METHOD 01/13/2025 5:17 PM EDT [facility] Blood Venous blood specimen / Unknown Venipuncture / Unknown 01/13/2025 12:05 PM EDT 01/13/2025 12:05 PM EDT Ana [facility]ina [facility] BLOOD ORDERABLES Final Resul t [facility] [address] [place] [address], * MG Mammo Digital Screening w Raffi bilat (09/03/2024 10:52 AM EDT) Anatomical Region Laterality Modality Breast Bilateral Mammography 09/03/2024 4:24 PM EDT Impressions 09/03/2024 4:28 PM EDT No mammographic evidence for malignancy. BI-RADS CATEGORY: 1 - NEGATIVE RECOMMENDATION: Screening bilateral mammogram is recommended in 1 year. Mammo Location: [facility], [address] [place] [address], [id number], . -------- FINAL REPORT -------- Dictated By: Whitney Huerta Dictated Date: 09/03/2024 16:24 ET Assigned Physician: Whitney Huerta Reviewed and Electronically Signed By: Whitney Huerta Signed Date: 09/03/2024 16:28 ET Workstation ID: [id number] Transcribed By: Self Edit Transcribed Date: 09/03/2024 [...] evidence of suspicious mass or architectural distortion. No worrisome calcifications are evident. There has been no significant change from prior exam(s). BREAST DENSITY: B - [...] is recommended in 1 year. Mammo Location: [facility], [address] [place] [address], [id number], . -------- FINAL REPORT -------- Dictated By: Whitney Huerta Dictated Date: 09/03/2024 16:24 ET Assigned Physician: Whitney Huerta Reviewed and Electronically Signed By: Whitney Huerta Signed Date: 09/03/2024 16:28 ET Workstation ID: [id number] Transcribed By: Self Edit Transcribed Date: 09/03/2024 16:24 ET Lisa Fitzpatrick MD IMG BI PROCEDURES Final Result * DXA BONE DENSITY STUDY 1+ SITS AXIAL SKEL (02/11/2020 10:59 AM EDT) Anatomical Region Laterality Modality Bone Densitometr y 01/24/2020 8:51 AM EDT Narrative 02/14/2020 5:43 PM EDT BONE DENSITY Lumbar Spine T-score is +1.4 (SD relative to 20-29 y/o adult) Z-score is +3.2 (SD relative to age matched peers) This is normal by criteria defined by the WHO. Left Hip T-score is -0.1 Z-score is +1.4 This is normal by criteria defined by the WHO. Comparison exam(s): significant increase in bone density of lumbar spine when compared to most recent bone density examination Confidence level is +/-95%. Impression: Based on the World Health Organization criteria, Jaxon Haque should be classified as having normal bone density. The [facility] Department of Internal Medicine recommends using National [...] Based on the World Health Organization criteria, Jaxon Haque should beclassified as having normal bone density. The [facility] Department of Internal Medicine recommendsusing National Osteoporosis [...] Resu lt * Hepatitis C Screening (06/05/2015) [facility] Hepatitis C Screening Abstracted Historical Provider HEALTH MAINTENANCE Final Result from Last 3 Months or Most Recently Relevant to Health Maintenance Insurance [facility] Care Teams [employer] Combination Relationship Specialty Start Date End Date Lisa Fitzpatrick MD [address] [place] [phone] PCP - General Internal Medicine 08/21/20
--- NOTE | 2025-05-05 10:57 | MHC.SL.IMP ---
Date of Plan of Treatment: 05/03/25 Onset of Symptoms/Illness: 03/25/25 Date Treatment Started: 05/03/25 Admitting Diagnosis: COPD, JF Primary Speech & Language Diagnosis: R13.13 Pharyngeal Phase Dysphagia Reason for Today's Visit: 49471 Modified Barium Swallow Study Pre-evaluation Dietary Consistencies: Regular Pre-evaluation Liquid Consistency: Thin Pre-evaluation Medication Administration: Whole with Liquid Medical History: Modified Barium Swallow Study Fluoroscopic Evaluation of Swallowing Function CPT Code 84304 Evaluation Year: 2024 Reason for Study: Patient reporting difficulty swallowing. Referring Physician: Olvin Rivera MD Evaluating Clinician: Jane Cheng MA, CCC-AIRLINE DISPATCHER Study Number: 1 Patient Name: Virginia Haque Status: Outpatient Age: 69 Sex: Male Medical History Medical History COPD exacerbation Moderate COPD (chronic obstructive pulmonary disease) Social History Years Smoked: 40 yrs Current (pre-evaluation) Intake/Diet: Route: PO Diet Grade: Regular Liquid Consistencies: Thin Pre-Study Functional Oral Intake Scale (FOIS): 7- Total oral intake with no restrictions Pain: None reported at time of study SUBJECTIVE: Patient is a 69 year old female referred for a modified barium swallow study (MBSS) by Dr. Rivera from [facility]. Patient is a former 20+ year smoker (quit 2004), followed by Pulmonology for moderate to severe COPD and JF on CPAP. Patient reports recent episodes of difficulty swallowing meat. Patient reports that food feels stuck and she experiences pain at the mid-chest area after lying down to go to sleep if she eats at 5pm or later. She said she now eats her dinner earlier and this does not happen anymore. She also reports feeling saliva go down the wrong pipe. Patient denies pain with swallowing and denies having any difficulty swallowing liquids. Oral Motor Exam Facial Symmetry: Symmetrical Mouth Occlusion: Normal Oral-Facial Teeth Characteristics: Dentures Oral-Facial Teeth Miscellaneous Observation: Top and bottom dentures present Oral-Facial Lip Pucker Description: Normal Oral-Facial Smile (Lips) Description: Normal Oral-Facial Puff Cheeks Description: Normal Tongue Size: Normal Tongue Excursion Description: Normal Tongue Range of Movement Description: Normal Tongue Speed of Movement Description: Normal Tongue Strength of Movement (against opposing pressure): Normal Tongue Movement Characteristics: Normal/Absent Food and Liquid Trials: Oral Impairment: Lip Closure: 1=Interlabial escape; no progression to anterior tip Oral Impairment: Tongue Control During Bolus Hold: 1=Escape to lateral buccal cavity/floor of mouth (FOM) Oral Impairment: Bolus Preparation/Mastication: 0=Timely and efficient chewing and mashing Oral Impairment: Bolus Transport/Lingual Motion: 0=Brisk tongue motion Oral Impairment: Oral Residue: 1=Trace residue lining oral structures Oral Impairment:Initiation of Pharyngeal Swallow: 2=Bolus head at posterior laryngeal surface of epiglottis Pharyngeal Impairment: Soft Palate Elevation: 0=No bolus between soft palate (SP)/pharyngeal wall (PW) Pharyngeal Impairment: Laryngeal Elevation: 1=Partial thyroid cartilage/arytenoids to epiglottic petiole movement Pharyngeal Impairment: Anterior Hyoid Excursion: 1=Partial anterior movement Pharyngeal Impairment: Epiglottic Movement: 1=Partial inversion Pharyngeal Impairment: Laryngeal Vestibular Closure:: 1=Incomplete: narrow column air/contrast in laryngeal vestibule Pharyngeal Impairment: Pharyngeal Stripping Wave: 0=Present: complete Pharyngeal Impairment: Pharyngeal Contraction: Did not test Pharyngeal Impairment: Pharyngoesophageal Segment Openin=Partial distention/partial duration: partial obstruction of flow Pharyngeal Impairment: Tongue Base (TB) Retraction: 1=Trace column of contrast/air between TB and posterior PW Pharyngeal Impairment: Pharyngeal Residue: 1=Trace residue within or on pharyngeal structures Pharyngeal Impairment: Esophageal Clearance Upright Position: Did not test Impressions and Recommendations OBJECTIVE: Time-out: performed at 14:30 Evaluation Start: 14:15; Stop: 14:20 Oxygen: nasal cannula Patient Positioning: Seated 70-90 degrees Viewing Planes: LATERAL ONLY Contrast: MBSImP? Standardized Protocol using commercially prepared, standardized Barium viscosities, including: Varibar? THIN LIQUID (40% w/v, <15 cps) , Varibar? PUDDING (40% w/v, <5950-7340 cps) , 1/2 Shortbread Cookie (1 x1 x.25 ) MBSImP ID: [id number] MBSImP Results: Lip closure for intraoral bolus containment resulted in interlabial escape, without progression to the anterior lip. Tongue control during bolus hold allowed bolus escape to the lateral buccal cavity/floor of mouth. Bolus preparation and mastication resulted in timely and efficient chewing and mashing. Bolus transport/lingual motion was with brisk tongue motion. Oral residue was a trace, lining oral structures. Initiation of the pharyngeal swallow occurred as the bolus head was at the posterior laryngeal surface of the epiglottis. Soft palate elevation resulted in no bolus between the soft palate and the pharyngeal wall. Laryngeal elevation was decreased, with partial superior movement of the thyroid cartilage/partial approximation of the arytenoids to the epiglottic petiole. Anterior hyoid excursion demonstrated partial anterior movement. Epiglottic movement resulted in partial inversion. Laryngeal vestibular closure was incomplete, with a narrow column of air/contrast noted within the laryngeal vestibule at the height of the swallow. Pharyngeal stripping wave was present and complete. Pharyngeal contraction could not be determined due to logistical reasons not related to physiologic impairment. Pharyngoesophageal segment opening demonstrated partial distension/partial duration, with partial obstruction of bolus flow. Tongue base retraction allowed a trace column of contrast or air between the retracted tongue base and the posterior pharyngeal wall. Pharyngeal residue was a trace within or on pharyngeal structures. Esophageal clearance in the upright position could not be assessed due to logistical reasons not related to physiologic impairment. Oral Impairment Score: 3 Pharyngeal Impairment Score: 5 (absence of score, component 13) Esophageal Impairment Score: --- (absence of score, component 17) Laryngeal Penetration and Aspiration: Neither penetration nor aspiration was observed in today's study with Cookie. Penetration was observed in today's study. Pudding-thick, Thin Contrast entered the airway, remained above the vocal folds, and were ejected from the airway. ASSESSMENT: This exam was performed by the radiologist and the speech pathologist. Patient was seated upright at 90 degrees for lateral view. She fed herself independently and trialed the following consistencies: -Thin liquid (via individual cup sips) -Puree (mixture applesauce w/ barium pudding) -Regular (shortbread cookies coated w/ barium pudding) There was interlabial escape of trace liquid. Liquid pooled to the floor of mouth as well, with bolus maintained in the oral cavity without premature posterior escape. Mastication was timely and efficient, with intact rotary chewing pattern. Pharyngeal swallow trigger was delayed, initiated as the bolus head reached the posterior laryngeal surface of the epiglottis. Post-swallow, there was trace in the floor of mouth, and on the tongue and palate, which cleared on secondary swallows. No evidence of nasopharyngeal reflux. Partial laryngeal elevation, with partial epiglottic inversion and incomplete laryngeal vestibular closure. There was flash penetration seen with trials of thin and puree consistencies. A trace amount of contrast entered the airway above the vocal folds and spontaneously cleared. No evidence of aspiration during this exam. There was very trace residue seen diffusely on the tongue base, in the valleculae, in the pyriforms, and on the posterior pharyngeal wall. Note partial distention through the pharyngoesophageal segment opening (PES). The following compensatory strategies have not been used until today's study, but when employed, improved swallowing function: Additional Swallow(s) per Bolus eliminated Oral Residue, Pharyngeal Residue Liquid Intake Recommendation: Thin Dietary Recommendations: Regular Medication Administration: Whole with Liquid Please contact the pharmacy regarding appropriate crushable or liquid drug formulations that are available whenever modified delivery is recommended. Compensatory Strategies Recommended: Sitting Upright (90 deg), Small Bites and Sips, Alternate Liquids/Solids, Rate of Ingestion Change Recommendation for Speech Therapy: NA:Typical Evaluation Text Comment: Intake Recommendations: Route: PO Diet Grade: Regular Liquid Consistencies: Thin Post-Study Functional Oral Intake Scale (FOIS): 7- Total oral intake with no restrictions Patient presents with mild pharyngeal dysphagia, characterized by delayed pharyngeal swallow trigger, incomplete laryngeal elevation, and partial epiglottic inversion. There was flash penetration seen with thin liquids and puree that spontaneously cleared without any subglottic aspiration. Trace pharyngeal residue cleared with subsequent swallows. Suggested Referrals: The patient might benefit from a referral to: Gastroenterology Indication for Referral: Patient c/o globus sensation and pain at the mid-chest area when lying down after meals, MBSS showing good oral and pharyngeal clearance. Therapy Recommendations: Further Speech Therapy is not warranted at this time. Recommend continue with unmodified diet REGULAR texture solids and THIN liquids, pills WHOLE with LIQUID. Advised patient to take small, individual sips of liquid (avoid consecutive sipping). Behavioral strategies to promote clearance include: take small bites, chew food well, alternate with sips of liquid, and ensure upright position during PO intake and for at least 60 minutes afterwards. Clinician - Supplemental, Miscellaneous Communication: It is important to note MBSS objective studies are snapshots in time and Patient function might vary with factors such as time of day or concomitant medical conditions. For this reason, the final treatment plan for this patient should rest with their medical care team. Additional recommendations should be considered with the totality of the Patient in mind. Thank for the opportunity to participate in the care of this patient. If you have any questions about the content of this report, please contact the [facility] at [facility]. Education: Education regarding findings from today's study and plans for therapy were provided to Patient only through Verbal Instruction. Understanding was expressed by the Patient only. Wetlands Technician Clinician/Clinical Fellow: No Supervisory Statement: N/A Speech Language Pathologist: Jane Cheng M.A., CCC-AIRLINE DISPATCHER
== END 2025-05-03 13:39 | disposition home or self-care (01) ==
LOC: HO.XRAY 13:38
PROVIDERS: PCP Internal Medicine; Visit Provider Internal Medicine Pulmonary Disease
DX: R13.13 Dysphagia, pharyngeal phase (principal)
CPT/HCPCS: 74230; 92611

== ENCOUNTER → 2025-05-03 14:00 | Outpatient (BNV) | payer OTHER, SELFPAY | PROVIDERS: PCP Internal Medicine; Visit Provider Radiology Diagnostic Ultrasound | DX: R13.10 Dysphagia, unspecified (principal) | CPT/HCPCS: 74230 ==